=== PATIENT | female | born 1950 | race Caucasian/White ===

== ENCOUNTER 2016-12-20 08:49 | Observation (INO) | payer BC, MEDICARE ==
[2016-12-20] VITALS (11 sets, daily range): BP systolic 103–170; BP diastolic 57–78; PULSE 46–66; RESP 15–20; TEMP 97.4–98.2; O2SAT 95–100
[~2016-12-20] VITALS: Ht 157.5 cm; Wt 60.0 kg
[~2016-12-20 08:49] MED LIST: ATEN-100 PO; FIORTAB4 PO; MVI
[2016-12-20] MEDS ORDERED: MULTTAB67 PO (09:00)
[2016-12-20] MEDS ORDERED: ASPI81CH CHEW (09:00)
[2016-12-20] MEDS ORDERED: LETR2.5T PO (09:00)
[2016-12-20 09:32] LABS: AUTOMATED NEUTROPHIL # 3.7 TH/MM3 (1.8-7.7); BASOPHIL % 0.4 % (0.0-2.0); EOSINOPHIL # 0.1 TH/MM3 (0-0.4); EOSINOPHIL % 1.5 % (0.0-4.0); HEMATOCRIT 32.9 % (35.0-46.0); HEMO FLAGS DIFF FINAL; LYMPH % 24.6 % (9.0-44.0); LYMPHOCYTE # 1.4 TH/MM3 (1.0-4.8); MEAN CELL VOLUME 91.8 FL (80.0-100.0); MEAN CORPUSCULAR HEMOGLOBIN 31.2 PG (27.0-34.0); MONO % 5.6 % (0.0-8.0); NEUT % 67.9 % (16.0-70.0); PLATELET COUNT 196 TH/MM3 (150-450); RED BLOOD COUNT 3.58 MIL/MM3 (4.00-5.30); RED CELL DISTRIBUTION WIDTH 13.1 % (11.6-17.2); WHITE BLOOD COUNT 5.5 TH/MM3 (4.0-11.0)
[2016-12-20 09:41] LABS: APTT (PATIENT) 28.4 SEC (24.3-30.1); INTERNATIONAL NORMALIZED RATIO 1.1 RATIO; PROTHROMBIN TIME - PATIENT 12.4 SEC (9.8-11.6)
[2016-12-20] MEDS ORDERED: ASPIRIN 81 MG CHEW TAB CHEW STA (09:51)
[2016-12-20 09:53] LABS: ALKALINE PHOSPHATASE 77 U/L (45-117); ALT (GPT) 36 U/L (10-53); ANION GAP 7 MEQ/L (5-15); AST (GOT) 25 U/L (15-37); BICARBONATE 29.7 MEQ/L (21.0-32.0); BLOOD UREA NITROGEN 15 MG/DL (7-18); CHLORIDE 104 MEQ/L (98-107); GLOMERULAR FILTRATION RATE 89 ML/MIN (>89); MAGNESIUM 2.1 MG/DL (1.5-2.5); SODIUM (NA) 141 MEQ/L (136-145); TOTAL BILIRUBIN ADULT 0.4 MG/DL (0.2-1.0)
--- NOTE | 2016-12-20 09:54 | RADRPT ---
EXAM DATE/TIME: 12/20/2016 09:43 [facility] COMPARISON: No previous studies available for comparison. INDICATIONS : Chest pain this morning, mid chest MEDICAL HISTORY : None. SURGICAL HISTORY : None. ENCOUNTER: Initial ACUITY: 1 day PAIN SCORE: 5/10 LOCATION: Bilateral chest FINDINGS: Portable AP view of the chest demonstrates a normal-sized cardiac silhouette. No effusion, consolidat ion, or pneumothorax is visualized. The bones and soft tissues demonstrate no acute abnormality. CONCLUSION: No acute cardiopulmonary abnormality is identified. Adonay Ortega MD on December 20, 2016 at 9:51 Board Certified Radiologist. This report was verified electronically.
--- NOTE | 2016-12-20 09:58 | PD ---
HPI Chief Complaint: Chest Pain Time Seen by Provider: 09:02 Travel History International Travel<30 days: No Contact w/Intl Traveler<30days: No Traveled to known affect area: No History of Present Illness HPI This 66 year-old woman who presents to the emergency department complaining of headache and chest pain. She states she has headaches about every other day or so. She only takes Tylenol for them. She got her typical headache starting in the middle the night last night. She couldn't sleep because the headache and because her neighbors compressor was going on. She states this morning she had one episode of vomiting and then developed pressure-like chest discomfort across her chest rating up into her neck and right shoulder as well as left shoulder. She doesn't was a some numbness in her lips. Symptoms been steady symptoms started, but are abating some. She had nausea still. She also some shortness of breath. States that she has not had this pressure like chest discomfort before. She is on a oral medication to topical hormone receptor parrish for history of breast CA. She has blood pressures elevated at night, was on atenolol in the past but is not now. She's had stress tests in the past , most recently about 2 years ago or so. She has no history of heart disease. No other complaints. History Past Medical History Narrative Medical History of breast CA, on oral medication Hypertension Social History Alcohol Use: Yes (occ.) Tobacco Use: No Allergies-Medications (Allergen,Severity, Reaction): Coded Allergies: Motrin (Verified Allergy, Mild, 10/10/15) Tessalon Perles (Verified Allergy, Unknown, 10/10/15) SOB Reported Meds & Prescriptions Reported Meds & Active Scripts Active Reported Letrozole 2.5 Mg Tab 1 Tab PO DAILY Multiple Vitamin 1 Tab 1 Tab PO DAILY Aspirin 81 Mg Chew 81 Mg CHEW DAILY Review of Systems Except as stated in HPI: all other systems reviewed are Neg Physical Exam Narrative GENERAL: Well-appearing 66 year-old woman, little bit anxious appearing, no acute distress. SKIN: Focused skin assessment warm/dry. HEAD: Atraumatic. Normocephalic. EYES: Pupils equal and round. No scleral icterus. No injection or drainage. ENT: No nasal bleeding or discharge. Mucous membranes pink and moist. NECK: Trachea midline. No JVD. CARDIOVASCULAR: Regular rate and rhythm. No murmur appreciated. RESPIRATORY: No accessory muscle use. Clear to auscultation. Breath sounds equal bilaterally. GASTROINTESTINAL: Abdomen soft, non-tender, nondistended. Hepatic and splenic margins not palpable. MUSCULOSKELETAL: No obvious deformities. No clubbing. No cyanosis. No edema. NEUROLOGICAL: Awake and alert. No obvious cranial nerve deficits. Motor grossly within normal limits. Normal speech. PSYCHIATRIC: Appropriate mood and affect; insight and judgment normal. Data Data Last Documented VS Vital Signs Date Time Temp Pulse Resp B/P Pulse Ox O2 Delivery O2 Flow Rate FiO2 12/20/16 09:29 96 Room Air 12/20/16 09:01 53 15 143/71 12/20/16 08:51 97.7 Orders Electrocardiogram (12/20/16 ) Electrocardiogram (12/20/16 09:14) Complete Blood Count With Diff (12/20/16 09:14) Comprehensive Metabolic Panel (12/20/16 09:14) Magnesium (Mg) (12/20/16 09:14) Prothrombin Time / Inr (Pt) (12/20/16 09:14) Act Partial Throm Time (Ptt) (12/20/16 09:14) Troponin I (12/20/16 09:14) Lipase (12/20/16 09:14) Chest, Single Ap (12/20/16 09:14) Ecg Monitoring (12/20/16 09:14) Bilateral Bp Monitoring (12/20/16 09:14) Iv Access Insert/Monitor (12/20/16 09:14) Oximetry (12/20/16 09:14) Oxygen Administration (12/20/16 09:14) Sodium Chloride 0.9% Flush (Ns Flush) (12/20/16 09:15) Aspirin Chew (Aspirin Chew) (12/20/16 09:51) Prochlorperazine Inj (Compazine Inj) (12/20/16 10:00) Diphenhydramine Inj (Benadryl Inj) (12/20/16 10:00) Sodium Chlorid 0.9% 500 Ml Inj (Ns 500 M (12/20/16 10:00) Labs Laboratory Tests Test 12/20/16 09:20 White Blood Count 5.5 TH/MM3 Red Blood Count 3.58 MIL/MM3 Hemoglobin 11.2 GM/DL Hematocrit 32.9 % Mean Corpuscular Volume 91.8 FL Mean Corpuscular Hemoglobin 31.2 PG Mean Corpuscular Hemoglobin 34.0 % Concent Red Cell Distribution Width 13.1 % Platelet Count 196 TH/MM3 Mean Platelet Volume 9.0 FL Neutrophils (%) (Auto) 67.9 % Lymphocytes (%) (Auto) 24.6 % Monocytes (%) (Auto) 5.6 % Eosinophils (%) (Auto) 1.5 % Basophils (%) (Auto) 0.4 % Neutrophils # (Auto) 3.7 TH/MM3 Lymphocytes # (Auto) 1.4 TH/MM3 Monocytes # (Auto) 0.3 TH/MM3 Eosinophils # (Auto) 0.1 TH/MM3 Basophils # (Auto) 0.0 TH/MM3 CBC Comment DIFF FINAL Differential Comment Prothrombin Time 12.4 SEC Prothromb Time International 1.1 RATIO Ratio Activated Partial 28.4 SEC Thromboplast Time Sodium Level 141 MEQ/L Potassium Level 4.0 MEQ/L Chloride Level 104 MEQ/L Carbon Dioxide Level 29.7 MEQ/L Anion Gap 7 MEQ/L Blood Urea Nitrogen 15 MG/DL Creatinine 0.66 MG/DL Estimat Glomerular Filtration 89 ML/MIN Rate Random Glucose 100 MG/DL Calcium Level 8.7 MG/DL Magnesium Level 2.1 MG/DL Total Bilirubin 0.4 MG/DL Aspartate Amino Transf 25 U/L (AST/SGOT) Alanine Aminotransferase 36 U/L (ALT/SGPT) Alkaline Phosphatase 77 U/L Troponin I LESS THAN 0.02 NG/ML Total Protein 7.2 GM/DL Albumin 4.0 GM/DL Lipase 133 U/L [facility] Medical Decision Making Medical Screen Exam Complete: Yes Emergency Medical Condition: Yes Interpretation(s) My review of EKG: Sinus bradycardia rate of 49, normal axis, normal intervals, no acute ischemia. Differential Diagnosis ACS, anxiety, migraine, dissection, PE, other Narrative Course Medical decision making This 58-year-old woman presents emergent [place] of pressure-like chest discomfort in the setting of headache. She gets headaches about every other day or so. She had some vomiting. She does not take NSAIDs. Doesn't really sound like gastritis. She has had some reflux before. She looks overall well. She may have some element of anxiety. We'll check x-ray, labs, EKG, and likely admit the chest pain Center. We'll give her Compazine and Benadryl for her migraine. FINAL: Headache improved, chest pain improved. Patient will be admitted chest pain Center for further evaluation. Diagnosis Primary Impression: Chest pain Braulio Chirinos MD December 20, 2016 09:58
[2016-12-20] MEDS ORDERED: SODIUM CHLORID 0.9% 500 ML INJ 500 ML IV ONE (10:00)
[2016-12-20] MEDS ORDERED: diphenhydrAMINE HCL 50 MG/ML VIAL IV PUSH ONE (10:00)
[2016-12-20] MEDS ORDERED: PROCHLORPERAZINE INJ 10 MG/2 ML VIAL IV PUSH ONE (10:00)
--- NOTE | 2016-12-20 11:24 | EKG ---
Date Performed: 12/20/2016 Time Performed: 09:05:20 PTAGE: 66 years EKG: SINUS BRADYCARDIA WITH SINUS ARRHYTHMIA BORDERLINE ECG PREVIOUS TRACING : 10/10/2015 11.42 DOCTOR: Tre Lovelace Interpretating Date/Time 12/20/2016 11:24:07
[2016-12-20] MEDS ORDERED: cloNIDine HCL 0.1 MG TAB PO PRN (11:30)
[2016-12-20] MEDS ORDERED: TEMAZEPAM 15 MG CAP PO PRN (11:30)
[2016-12-20] MEDS ORDERED: ONDANSETRON HCL 4 MG/2 ML VIAL IV PRN (11:30)
[2016-12-20] MEDS ORDERED: SODIUM CHLORIDE 0.9% FLUSH 5 ML FLUSH IVF PRN (11:30)
[2016-12-20] MEDS ORDERED: ALPRAZolam 0.25 MG TAB PO PRN (11:30)
--- NOTE | 2016-12-20 11:39 | HHI.HP ---
[facility] Primary Care Physician Richelle Mata MD Chief Complaint Chest pain History of Present Illness This is a 66-year-old female that presents to ED via private vehicle stating that she drove herself here with a complaint of discomfort in her chest. She had a left-sided discomfort that she describes as crushing it began around 7:30 this morning while she was on the phone with a friend. The read on her left arm with also some numbness and tingling in her left arm and hand. She was nauseous with one episode of emesis. She was short of breath with also diaphoresis. She believes the nausea was more so related to a headache that she was having. She states she has chronic migraines. She has them every other day and sometimes even daily. This was her typical type of headache. She still having the chest discomfort. Was a 9 out of 10 initially currently discomfort is a 2 out of 10. She's had a cardiac evaluation the past. States she saw Dr. Ribeiro in the past per she had a stress test to 3 years ago that was okay. Cannot recall ever having have a cardiac catheterization. Denies recent illness. Denies fevers or chills. Denies any recent travel. History of breast cancer diagnosed 2012 and takes letrozole daily. She states that no mass was detected on the last imaging study. Review of Systems General: Patient denies fevers, chills recent, and recent travel HEENT: She has had a headache since 2:00 this morning but is feeling better after getting IV medication in the ED. Patient denies sore throat, difficulty swallowing. Cardiovascular: Has the chest discomfort as mentioned above. Denies sensation of heart beating rapidly or irregularly. No syncope. She was diaphoretic. Respiratory: She was initially short of breath. Denies inspirational chest discomfort. Denies coughing wheezing or hemoptysis. GI: She was nauseous earlier with an episode of emesis. Patient denies diarrhea , abdominal pain, and bloody stools. Musculoskeletal: Patient denies joint pain or edema. Denies calf pain or edema. Neurovascular: Complained of numbness and tingling sensation down her left arm. Patient weakness in extremities. Denies headache. Endocrine: Denies polyuria and polydipsia. Hematologic: Denies easy bruising. Skin: Denies rash or itching. Past Family Social History Allergies: Coded Allergies: Motrin (Verified Allergy, Mild, 10/10/15) Tessalon Perles (Verified Allergy, Unknown, 10/10/15) SOB Past Medical History Migraines. Breast cancer diagnosed 2012 but states last imaging study does not reveal any masses. Denies hypertension, hyperlipidemia, diabetes, and known CAD. Past Surgical History Biopsy of breast is benign. Reported Medications Reported Meds & Active Scripts Active Reported Letrozole 2.5 Mg Tab 1 Tab PO DAILY Multiple Vitamin 1 Tab 1 Tab PO DAILY Aspirin 81 Mg Chew 81 Mg CHEW DAILY Active Ordered Medications Current Medications Medications (Trade) Dose Ordered Sig/Emma Route Start Time Stop Time Status Last Admin (NS Flush) 2 ml UNSCH PRN IVF 12/20/16 09:15 Family History Her younger brother has had cardiac stents. She has a sister with CHF. Her mother at age 61 of congestive heart failure. Social History Patient is a lifetime nonsmoker. Denies illicit drugs. She has occasional call. She states that her daughter lives with her. Physical Exam Vital Signs Vital Signs Date Time Temp Pulse Resp B/P Pulse Ox O2 Delivery O2 Flow Rate FiO2 12/20/16 09:29 96 Room Air 12/20/16 09:18 97 Room Air 12/20/16 09:01 53 15 143/71 99 Room Air 12/20/16 08:56 17 Room Air 12/20/16 08:51 97.7 54 20 170/78 100 Room Air Physical Exam GENERAL: This is a well-nourished, well-developed patient, in no apparent distress. Patient speaks in clear complete sentences. Patient is pleasant. HEENT: Head is atraumatic and normocephalic. Neck is supple without lymphadenopathy and trachea is midline. No JVD or carotid bruits. CARDIOVASCULAR: Grade 2 systolic murmur right sternal border. This does not radiate into the neck. Regular rate and rhythm without gallops, or rubs. RESPIRATORY: Clear to auscultation. Breath sounds equal bilaterally. No wheezes , rales, or rhonchi. Chest wall is nontender. No use of accessory muscles. GASTROINTESTINAL: Abdomen is nontender, nondistended. Abdomen soft. No obvious pulsatile mass or bruit. No CVA tenderness. Strong femoral pulses bilaterally. Normal bowel sounds in all quadrants. MUSCULOSKELETAL: Patient is moving upper and lower extremities freely. No calf tenderness or edema, no Homans sign. Strong pulses in upper and lower extremities. NEUROLOGICAL: Patient is alert and oriented. Cranial nerves 2-12 are grossly intact. No focal deficits and speech is clear. SKIN: No rash and turgor is normal. Laboratory Laboratory Tests Test 12/20/16 09:20 White Blood Count 5.5 Red Blood Count 3.58 Hemoglobin 11.2 Hematocrit 32.9 Mean Corpuscular Volume 91.8 Mean Corpuscular Hemoglobin 31.2 Mean Corpuscular Hemoglobin 34.0 Concent Red Cell Distribution Width 13.1 Platelet Count 196 Mean Platelet Volume 9.0 Neutrophils (%) (Auto) 67.9 Lymphocytes (%) (Auto) 24.6 Monocytes (%) (Auto) 5.6 Eosinophils (%) (Auto) 1.5 Basophils (%) (Auto) 0.4 Neutrophils # (Auto) 3.7 Lymphocytes # (Auto) 1.4 Monocytes # (Auto) 0.3 Eosinophils # (Auto) 0.1 Basophils # (Auto) 0.0 CBC Comment DIFF FINAL Differential Comment Prothrombin Time 12.4 Prothromb Time International 1.1 Ratio Activated Partial 28.4 Thromboplast Time Sodium Level 141 Potassium Level 4.0 Chloride Level 104 Carbon Dioxide Level 29.7 Anion Gap 7 Blood Urea Nitrogen 15 Creatinine 0.66 Estimat Glomerular Filtration 89 Rate Random Glucose 100 Calcium Level 8.7 Magnesium Level 2.1 Total Bilirubin 0.4 Aspartate Amino Transf 25 (AST/SGOT) Alanine Aminotransferase 36 (ALT/SGPT) Alkaline Phosphatase 77 Troponin I LESS THAN 0.02 Total Protein 7.2 Albumin 4.0 Lipase 133 Result Diagram: 12/20/1691912/20/16919 Imaging Last 24 hours Impressions Chest X-Ray 12/20/16913 Signed Impressions: Service Date/Time: Tuesday, December 20, 2016 09:43 - CONCLUSION: No acute cardiopulmonary abnormality is identified. Adonay Ortega MD Course Initial EKG is sinus bradycardia without significant ST segment depressions or elevations. Assessment and Plan Assessment and Plan * Chest pain: Patient will continue to have serial cardiac enzymes and EKGs for ruling out purposes. She will be seen by Dr. Ty Butler of cardiology in the chest pain center and will need a Lexiscan if she rules out. She will had coffee this morning and will need the spend the night for stress testing in the morning. She'll be discharged home if her stress test were to be nonischemic. She would then follow-up with her primary care physician. Patient is stable at this time. She is agreeable to this plan. Elvin Salvador December 20, 2016 11:39
[2016-12-20] MEDS ORDERED: oxyCODONE/ACETAMINOPHEN 5 MG/325 MG TAB PO PRN (13:00)
[2016-12-20 13:21] LABS: CREATINE KINASE 73 U/L (26-192)
[2016-12-20] MEDS: PANTOPRAZOLE SOD 40 MG DELAYED RELEASE TAB PO SCH (15:14)
[2016-12-20] MEDS: ACETAMINOPHEN 500 MG CPLT PO PRN (15:15)
[2016-12-20 15:59] LABS: CREATINE KINASE 66 U/L (26-192)
[2016-12-20] MEDS: SODIUM CHLORIDE 0.9% FLUSH 5 ML FLUSH IVF SCH (19:55)
[2016-12-21 04:35] VITALS: BP 140/65; PULSE 59; RESP 18; TEMP 97.5; O2SAT 95
[2016-12-21] MEDS: ACETAMINOPHEN 500 MG CPLT PO PRN (05:26)
[2016-12-21 07:02] VITALS: O2SAT 96
[2016-12-21 07:04] VITALS: BP 117/68; PULSE 60; RESP 16; TEMP 97.8; O2SAT 98
[2016-12-21 07:39] VITALS: PULSE 50
--- NOTE | 2016-12-21 08:05 | EKG ---
Date Performed: 12/20/2016 Time Performed: 15:19:40 PTAGE: 66 years EKG: SINUS BRADYCARDIA BORDERLINE ECG Since PREVIOUS TRACING , no significant change noted PREVIOUS TRACIN12/20/2016 12.23 DOCTOR: Shima Wolff Interpretating Date/Time 12/21/2016 08:03:50
--- NOTE | 2016-12-21 08:06 | EKG ---
Date Performed: 12/20/2016 Time Performed: 12:23:06 PTAGE: 66 years EKG: SINUS BRADYCARDIA BORDERLINE ECG Since PREVIOUS TRACING , no significant change noted PREVIOUS TRACIN12/20/2016 09.05 DOCTOR: Shima Wolff Interpretating Date/Time 12/21/2016 08:04:12
[2016-12-21] MEDS ORDERED: NON-FORMULARY DRUG (Letrozole 1 TAB) PO SCH (09:00)
[2016-12-21] MEDS ORDERED: ASPIRIN 325 MG TAB PO SCH (09:00)
[2016-12-21] MEDS: SODIUM CHLORIDE 0.9% FLUSH 5 ML FLUSH IVF SCH (09:00)
[2016-12-21] MEDS ORDERED: MULTIVITAMIN TAB PO SCH (09:00)
[2016-12-21] MEDS ORDERED: LETROZOLE 2.5 MG PO SCH (09:00)
[2016-12-21] MEDS ORDERED: REGADENOSON INJ 0.4 MG/5 ML SYR ONE (09:43)
[2016-12-21] MEDS ORDERED: AMINOPHYLLINE INJ 250 MG/10 ML VIAL ONE (09:44)
--- NOTE | 2016-12-21 10:38 | RADRPT ---
EXAM DATE/TIME: 12/21/2016 08:42 [facility] COMPARISON: No previous studies available for comparison. INDICATIONS : Headache with voting leading to retrosternal chest pain radiating to the neck and bilateral shoulder s with dyspnea. Angina. DOSE: 26.5 mCi Tc99m Myoview at stress. 8.8 mCi Tc99m Myoview at rest. 0.4 mg Lexiscan STRESS SYMPTOMS: Dyspnea, headache, and stomach pain. MEDICATIONS: 1.) 100 mg Aminophylline IV EJECTION FRACTION: 65% MEDICAL HISTORY : Hypertension. Carcinoma, breast. SURGICAL HISTORY : Appendectomy. Hysterectomy. Tubal ligation. ENCOUNTER: Initial ACUITY: 1 day PAIN SCALE: 6/10 LOCATION: Retrosternal chest TECHNIQUE: The patient underwent pharmacologic stress with infusion of prescribed dose. Continuous ECG tracing was monitored during stress. Gated SPECT imaging was performed after stress and conventional SPECT i maging was performed at rest. The examination was performed on a SPECT/CT scanner, both attenuation and non-corrected datasets were reviewed. FINDINGS: DISTRIBUTION: The maximum perfused segment at stress is in the anterolateral wall. PERFUSION STUDY: The pattern of perfusion at stress shows fixed diminished perfusion to the low inferolateral and ante roseptal dang extending into the apex. This is fixed on the rest images as well. No significant reve rsibility to suggest ischemia. GATED STUDY: There is intact wall motion and thickening without hypokinetic or dyskinetic segments. CONCLUSION: 1. 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 2. No scintigraphic findings of ischemia. 3. Excellent wall motion throughout with estimated ejection fraction of 65%. RISK CATEGORY: Low (<1% Annual Mortality Rate) Brad Berkowitz MD on December 21, 2016 at 10:30 Board Certified Radiologist. This report was verified electronically.
[2016-12-21] MEDS: SODIUM CHLORIDE 0.9% FLUSH 10 ML FLUSH IVF PRN ×2 (10:49→10:50)
[2016-12-21] MEDS: PANTOPRAZOLE SOD 40 MG DELAYED RELEASE TAB PO SCH (10:49)
[2016-12-21 11:03] VITALS: BP 138/66; PULSE 71; RESP 16; TEMP 98; O2SAT 97
--- NOTE | 2016-12-21 11:04 | HHI.DCPOC ---
Discharge Care Plan Diagnosis: (1) Atypical chest pain Goals to Promote Your Health * To prevent worsening of your condition and complications * To maintain your health at the optimal level Directions to Meet Your Goals Take your medications as prescribed Follow your dietary instruction Follow activity as directed Keep your appointments as scheduled Take your immunizations and boosters as scheduled If your symptoms worsen call your PCP, if no PCP go to Urgent Care Center or Emergency Room Smoking is Dangerous to Your Health. Avoid second hand smoke Call the 24-hour hour crisis hotline for domestic abuse at Lyndsey Larose December 21, 2016 11:04
[2016-12-21 11:50] VITALS: RESP 15
--- NOTE | 2016-12-21 15:15 | TR ---
Date Performed: 12/21/2016 Time Performed: 09:20:20 DOCTOR: Shima Wolff DRUG LIST: CLINICAL HISTORY: REASON FOR TEST: Angina REASON FOR ENDING: OBSERVATION: CONCLUSION: Lexiscan stress test was performed under standard four minute protocol. Radionucl[place] e was injected one minute prior to ending the test. No electrocardiographic abormalities were present to suggest ischemia. Nuclear imaging and interpretation are pending. COMMENTS:
== END 2016-12-21 12:49 | disposition home or self-care (01) ==
LOC: NEPC 08:49 → NEDA 11:11 → NEPFCDU 12:14
PROVIDERS: ADMIT Internal Medicine Cardiovascular Disease; ATTEND Internal Medicine Cardiovascular Disease
DX: R07.89 Other chest pain (principal); G43.909 Migraine, unspecified, not intractable, without status migrainosus; I20.9 Angina pectoris, unspecified; I10 Essential (primary) hypertension; I49.8 Other specified cardiac arrhythmias; R00.1 Bradycardia, unspecified; R06.02 Shortness of breath; R20.0 Anesthesia of skin; R53.1 Weakness; Z85.3 Personal history of malignant neoplasm of breast; Z82.49 Family history of ischemic heart disease and other diseases of the circulatory system
CPT/HCPCS: 71010; 78452; 80053; 82550; 83690; 83735; 84484; 85025; 85610; 85730; 93005; 93017; 96361; 96374; 96375; 99285; A9502; G0378; J0280; J0780; J1200; J2785; J7040

== ENCOUNTER 2016-12-23 03:45 | Emergency (ER) | payer MEDICARE ==
[~2016-12-23] VITALS: Ht 157.5 cm; Wt 61.0 kg
[~2016-12-23 03:45] MED LIST changes: +ASPI81CH CHEW; -ATEN-100 PO; -FIORTAB4 PO; +LETR2.5T PO; +MULTTAB67 PO; -MVI
[2016-12-23 03:52] VITALS: BP 187/84; PULSE 55; RESP 18; TEMP 98.5; O2SAT 100
[2016-12-23] MEDS ORDERED: ONDANSETRON HCL 4 MG/2 ML VIAL IV PUSH ONE (04:30)
[2016-12-23] MEDS ORDERED: MORPHINE SULFATE 4 MG/ML INJ IV PUSH ONE (04:30)
--- NOTE | 2016-12-23 04:32 | PD ---
HPI Chief Complaint: Abdominal Pain Time Seen by Provider: 04:28 Travel History International Travel<30 days: No Contact w/Intl Traveler<30days: No Traveled to known affect area: No History of Present Illness HPI 66-year-old female presents to the emergency department by private vehicle for complaint of lower bandlike abdominal pain radiating into her back. Patient denies lower extremity numbness tingling or weakness or bladder or bowel dysfunction or saddle anesthesia. Patient states she has history of irritable bowel syndrome for which she takes liness and prior breast cancer but has no other medical issues. Patient recently was hospitalized for bowel obstruction and underwent upper and lower endoscopy and no foci was identified. Patient also recently hospitalized with chest pain and had a normal stress test. Patient states her back pain increases with range of motion of her hips but denies any hip knee ankle or leg pain or swelling. No complaint of chest pain pleuritic chest pain shortness of breath referred neck jaw upper back mid scapular or upper abdominal pain. PFSH Past Medical History Narrative Medical Anxiety breast cancer chemotherapy hypertension irritable bowel syndrome bowel obstruction endoscopy colonoscopy hypertension migraines tubal ligation Asthma: No Blood Disorders: No Anxiety: Yes Depression: No Heart Rhythm Problems: No Cancer: Yes (BREAST BENIGN ) Cardiovascular Problems: Yes High Cholesterol: No Chemotherapy: Yes (PILL, BREAST CA) Chest Pain: No Congestive Heart Failure: No COPD: No Diabetes: No Diminished Hearing: No Endocrine: No Gastrointestinal Disorders: Yes (Irritable Bowel Syndrome) Genitourinary: No Hypertension: Yes Immune Disorder: No Musculoskeletal: No Neurologic: No Psychiatric: No Reproductive: No Respiratory: No Migraines: Yes Radiation Therapy: No Sleep Apnea: No Thyroid Disease: No Tetanus Vaccination: < 5 Years Influenza Vaccination: Yes Tubal Ligation: Yes Past Surgical History Appendectomy: Yes Body Medical Devices: chip on right side breast Eye Surgery: Yes (CATARACT) Gynecologic Surgery: Yes (HYSTERECTOMY) Hysterectomy: Yes Other Surgery: Yes (hystectomy, appendectomy, tubal ligation) Social History Alcohol Use: Yes (occ.) Tobacco Use: No Substance Use: No Allergies-Medications (Allergen,Severity, Reaction): Coded Allergies: Motrin (Verified Allergy, Mild, 12/23/16) Tessalon Perles (Verified Allergy, Unknown, 12/23/16) SOB Reported Meds & Prescriptions Reported Meds & Active Scripts Active Reported Letrozole 2.5 Mg Tab 1 Tab PO DAILY Multiple Vitamin 1 Tab 1 Tab PO DAILY Aspirin 81 Mg Chew 81 Mg CHEW DAILY Review of Systems Except as stated in HPI: all other systems reviewed are Neg General / Constitutional: No: Fever, Chills HENT: No: Congestion Cardiovascular: No: Chest Pain or Discomfort Respiratory: No: Shortness of Breath Gastrointestinal: Positive: Nausea, Vomiting (x1), Abdominal Pain Genitourinary: Positive: Flank Pain, No: Dysuria Musculoskeletal: Positive: Myalgias, Arthralgias, Pain (low back pain) Skin: No Rash Neurologic: No: Weakness, Paresthesia, Incontinence Psychiatric: Positive: Anxiety Hematologic/Lymphatic: No: Lymph Node Enlargement Physical Exam Narrative GENERAL: Well-developed well-nourished anxious appearing female in no respiratory distress SKIN: Warm and dry. HEAD: Normocephalic. EYES: No scleral icterus. No injection or drainage. NECK: Supple, trachea midline. No JVD or lymphadenopathy. CARDIOVASCULAR: Regular rate and rhythm without murmurs, gallops, or rubs. RESPIRATORY: Breath sounds equal bilaterally. No accessory muscle use. GASTROINTESTINAL: Abdomen soft, bilateral lower quadrant tenderness without guarding or rebound no palpable pulsatile mass, nondistended. MUSCULOSKELETAL: No cyanosis, or edema. BACK: Nontender without obvious deformity. Bilateral CVA tenderness. Increased pain with straight leg raising; distally extremities are neurovascular tendon intact with 2+ dorsalis pedis pulses. DTRs 2+ and equal bilaterally no clonus. Data Data Last Documented VS Vital Signs Date Time Temp Pulse Resp B/P Pulse Ox O2 Delivery O2 Flow Rate FiO2 12/23/16 04:46 55 17 142/67 100 Room Air 12/23/16 03:52 98.5 Orders Complete Blood Count With Diff (12/23/16 04:28) Comprehensive Metabolic Panel (12/23/16 04:28) Lipase (12/23/16 04:28) Urinalysis - C+S If Indicated (12/23/16 04:28) Ct Abd/Pel W Iv Contrast(Rout) (12/23/16 04:28) Iv Access Insert/Monitor (12/23/16 04:28) Ecg Monitoring (12/23/16 04:28) Oximetry (12/23/16 04:28) Ondansetron Inj (Zofran Inj) (12/23/16 04:30) Morphine Inj (Morphine Inj) (12/23/16 04:30) Iohexol 350 Inj (Omnipaque 350 Inj) (12/23/16 05:45) Labs Laboratory Tests Test 12/23/16 12/23/16 04:40 05:50 White Blood Count 5.8 TH/MM3 Red Blood Count 3.51 MIL/MM3 Hemoglobin 11.0 GM/DL Hematocrit 31.8 % Mean Corpuscular Volume 90.5 FL Mean Corpuscular Hemoglobin 31.2 PG Mean Corpuscular Hemoglobin 34.5 % Concent Red Cell Distribution Width 12.9 % Platelet Count 207 TH/MM3 Mean Platelet Volume 8.9 FL Neutrophils (%) (Auto) 55.4 % Lymphocytes (%) (Auto) 34.1 % Monocytes (%) (Auto) 7.4 % Eosinophils (%) (Auto) 2.5 % Basophils (%) (Auto) 0.6 % Neutrophils # (Auto) 3.2 TH/MM3 Lymphocytes # (Auto) 2.0 TH/MM3 Monocytes # (Auto) 0.4 TH/MM3 Eosinophils # (Auto) 0.1 TH/MM3 Basophils # (Auto) 0.0 TH/MM3 CBC Comment DIFF FINAL Differential Comment Sodium Level 140 MEQ/L Potassium Level 3.8 MEQ/L Chloride Level 104 MEQ/L Carbon Dioxide Level 29.1 MEQ/L Anion Gap 7 MEQ/L Blood Urea Nitrogen 12 MG/DL Creatinine 0.68 MG/DL Estimat Glomerular Filtration 86 ML/MIN Rate Random Glucose 96 MG/DL Calcium Level 8.6 MG/DL Total Bilirubin 0.4 MG/DL Aspartate Amino Transf 20 U/L (AST/SGOT) Alanine Aminotransferase 28 U/L (ALT/SGPT) Alkaline Phosphatase 69 U/L Total Protein 6.9 GM/DL Albumin 3.9 GM/DL Lipase 118 U/L Urine Color LIGHT-YELLOW Urine Turbidity CLEAR Urine pH 7.0 Urine Specific [place] 1.009 Urine Protein NEG mg/dL Urine Glucose (UA) NEG mg/dL Urine Ketones NEG mg/dL Urine Occult Blood NEG Urine Nitrite NEG Urine Bilirubin NEG Urine Urobilinogen LESS THAN 2.0 MG/DL Urine Leukocyte Esterase NEG Urine RBC LESS THAN 1 /hpf Microscopic Urinalysis Comment CULT NOT INDICATED MDM Medical Decision Making Medical Screen Exam Complete: Yes Emergency Medical Condition: Yes Medical Record Reviewed: Yes Interpretation(s) UA: wnl Last Impressions Abdomen/Pelvis CT 12/23/16 0428 Signed Impressions: Service Date/Time: December 05:41 - CONCLUSION: No acute CT findings in the abdomen or pelvis. Adonay Hansen MD CBC & BMP Diagram 12/23/16 04:40 Vital Signs Date Time Temp Pulse Resp B/P Pulse Ox O2 Delivery O2 Flow Rate FiO2 12/23/16 04:46 55 17 142/67 100 Room Air 12/23/16 03:56 16 12/23/16 03:52 98.5 55 18 187/84 100 Room Air Differential Diagnosis Abdominal pain, bowel obstruction, diverticulitis, colitis, abdominal aortic aneurysm, renal colic, UTI, sciatica, sacroiliitis, metastatic disease; no findings for cauda equina syndrome Narrative Course Patient placed on court monitor IV access obtained specimens collected and sent for resulting patient administered Zofran 4 mg IV and morphine sulfate [address] abdomen and pelvis with IV contrast ordered CBC with automated differential metabolic panel values are normal range Patient sent for CT abdomen and pelvis CT abdomen and pelvis reveals no acute intra-abdominal or pelvic abnormality/ pathology Patient notes clinical improvement after pain medication as some residual pain to the left flank; urinalysis pending Urinary resulted and found to be in normal range Patient is stable for outpatient management will be given prescription for tramadol and Medrol Dosepak and encouraged to follow-up with her primary care provider Diagnosis Primary Impression: Lumbar back pain Qualified Code: M54.42 - Acute left-sided low back pain with left-sided sciatica Additional Impression: IBS (irritable bowel syndrome) Qualified Code: K58.9 - Irritable bowel syndrome, unspecified type Referrals: Primary Care Physician call for appointment Patient Instructions: General Instructions Med/Other Pt SpecificInfo: Prescription(s) given Scripts Methylprednisolone Dosepak (Medrol Dosepak)4 Mg Dspk4 Mg PO DIRECTED #1 DSPK Ref 0 Per Pharmacist direction Prov:Flores Urias MD 12/23/16 Tramadol 50 Mg Tab50 Mg PO Q6H PRN (PAIN) #12 TAB Ref 0 Prov:Flores Urias MD 12/23/16 Disposition: DISCHARGE HOME Condition: Stable Flores Urias MD Dec 23, 2016 04:32
[2016-12-23 04:46] VITALS: BP 142/67; PULSE 55; RESP 17; O2SAT 100
[2016-12-23 05:03] LABS: AUTOMATED NEUTROPHIL # 3.2 TH/MM3 (1.8-7.7); BASOPHIL % 0.6 % (0.0-2.0); EOSINOPHIL # 0.1 TH/MM3 (0-0.4); EOSINOPHIL % 2.5 % (0.0-4.0); HEMATOCRIT 31.8 % (35.0-46.0); HEMO FLAGS DIFF FINAL; LYMPH % 34.1 % (9.0-44.0); MEAN CELL VOLUME 90.5 FL (80.0-100.0); MEAN CORPUSCULAR HEMOGLOBIN 31.2 PG (27.0-34.0); MEAN CORPUSCULAR HGB CONC 34.5 % (32.0-36.0); MONO % 7.4 % (0.0-8.0); NEUT % 55.4 % (16.0-70.0); PLATELET COUNT 207 TH/MM3 (150-450); RED BLOOD COUNT 3.51 MIL/MM3 (4.00-5.30); RED CELL DISTRIBUTION WIDTH 12.9 % (11.6-17.2); WHITE BLOOD COUNT 5.8 TH/MM3 (4.0-11.0)
[2016-12-23 05:26] LABS: ANION GAP 7 MEQ/L (5-15); AST (GOT) 20 U/L (15-37); BICARBONATE 29.1 MEQ/L (21.0-32.0); BLOOD UREA NITROGEN 12 MG/DL (7-18); CHLORIDE 104 MEQ/L (98-107); GLOMERULAR FILTRATION RATE 86 ML/MIN (>89); POTASSIUM 3.8 MEQ/L (3.5-5.1); SODIUM (NA) 140 MEQ/L (136-145)
[2016-12-23 05:27] LABS: ALT (GPT) 28 U/L (10-53)
[2016-12-23 05:29] LABS: ALKALINE PHOSPHATASE 69 U/L (45-117); TOTAL BILIRUBIN ADULT 0.4 MG/DL (0.2-1.0)
[2016-12-23] MEDS ORDERED: IOHEXOL 350 MG/ML 10 ML VIAL (for RAD DIAG) IV ONE (05:45)
--- NOTE | 2016-12-23 05:55 | RADRPT ---
EXAM DATE/TIME: 12/23/2016 05:41 [facility] COMPARISON: No previous studies available for comparison. INDICATIONS : Abdomen and back pain. IV CONTRAST: 80 cc Omnipaque 350 (iohexol) IV ORAL CONTRAST: No oral contrast ingested. RADIATION DOSE: 6.00 CTDIvol (mGy) MEDICAL HISTORY : Cardiovascular disease. Hypertension. Carcinoma, breast. SURGICAL HISTORY : Appendectomy. Hysterectomy. ENCOUNTER: Initial ACUITY: 1 day PAIN SCALE: 10/10 LOCATION: abdomen TECHNIQUE: Volumetric scanning of the abdomen and pelvis was performed. Using automated exposure control and ad justment of the mA and/or kV according to patient size, radiation dose was kept as low as reasonably achievable to obtain optimal diagnostic quality images. FINDINGS: LOWER LUNGS: The visualized lower lungs are clear. LIVER: Homogeneous density without lesion. There is no dilation of the biliary tree. No calcified gallston es. SPLEEN: Normal size without lesion. PANCREAS: Within normal limits. KIDNEYS: Bilateral cysts, largest a 1.8 cm cyst arising in the lateral apex of the left kidney. No evidence of hydronephrosis or stone. ADRENAL GLANDS: Within normal limits. VASCULAR: There is no aortic aneurysm. BOWEL/MESENTERY: The stomach, small bowel, and colon demonstrate no acute abnormality. There is no free intraperitone al air or fluid. ABDOMINAL WALL: Within normal limits. RETROPERITONEUM: There is no lymphadenopathy. BLADDER: No wall thickening or mass. REPRODUCTIVE: Uterus is surgically absent. No evidence of pelvic mass or free fluid. INGUINAL: There is no lymphadenopathy or hernia. MUSCULOSKELETAL: Within normal limits for patient age. CONCLUSION: No acute CT findings in the abdomen or pelvis. Adonay Hansen MD on December 23, 2016 at 5:49 Board Certified Radiologist. This report was verified electronically.
[2016-12-23 06:06] LABS: BLOOD, URINE NEG (NEG); COMMENT (UR) CULT NOT INDICATED; CULTURE IF INDICATED CULT NOT INDICATED; GLUCOSE,URINE NEG (NEG); KETONE, URINE NEG (NEG); NITRITE,URINE NEG (NEG); URINE COLOR LIGHT-YELLOW (YELLW/STRAW)
[2016-12-23] MEDS ORDERED: TRAM50TA PO (06:17)
[2016-12-23] MEDS ORDERED: MEDR4PAK PO (06:17)
[2016-12-23] MEDS ORDERED: predniSONE 20 MG TAB PO ONE (06:30)
[2016-12-23 06:56] VITALS: BP 138/61
== END 2016-12-23 07:15 | disposition home or self-care (01) ==
LOC: NEPC 03:45
DX: M54.5 Low back pain (principal); K58.9 Irritable bowel syndrome, unspecified; I10 Essential (primary) hypertension; F41.9 Anxiety disorder, unspecified
CPT/HCPCS: 74177; 80053; 81001; 83690; 85025; 96374; 96375; 99285; J2270; J2405; J7512; Q9967

== ENCOUNTER 2017-04-29 06:32 | Emergency (ER) | payer MEDICARE ==
[~2017-04-29] VITALS: Ht 154.9 cm; Wt 63.5 kg
[~2017-04-29 06:32] MED LIST changes: +MEDR4PAK PO; +TRAM50TA PO
[2017-04-29 06:34] VITALS: BP 179/84; PULSE 54; RESP 16; TEMP 98; O2SAT 100
[2017-04-29 06:58] VITALS: RESP 17; O2SAT 100
[2017-04-29 07:12] LABS: AUTOMATED NEUTROPHIL # 2.6 TH/MM3 (1.8-7.7); BASOPHIL % 0.8 % (0.0-2.0); EOSINOPHIL # 0.2 TH/MM3 (0-0.4); EOSINOPHIL % 3.5 % (0.0-4.0); HEMATOCRIT 37.1 % (35.0-46.0); HEMO FLAGS DIFF FINAL; LYMPH % 43.1 % (9.0-44.0); LYMPHOCYTE # 2.4 TH/MM3 (1.0-4.8); MEAN CELL VOLUME 91.5 FL (80.0-100.0); MEAN CORPUSCULAR HEMOGLOBIN 31.4 PG (27.0-34.0); MEAN CORPUSCULAR HGB CONC 34.3 % (32.0-36.0); NEUT % 46.6 % (16.0-70.0); PLATELET COUNT 234 TH/MM3 (150-450); RED BLOOD COUNT 4.05 MIL/MM3 (4.00-5.30); RED CELL DISTRIBUTION WIDTH 12.9 % (11.6-17.2); WHITE BLOOD COUNT 5.5 TH/MM3 (4.0-11.0)
[2017-04-29 07:31] LABS: APTT (PATIENT) 24.1 SEC (24.3-30.1); PROTHROMBIN TIME - PATIENT 10.8 SEC (9.8-11.6)
[2017-04-29 07:32] LABS: ANION GAP 5 MEQ/L (5-15); BICARBONATE 29.8 MEQ/L (21.0-32.0); BLOOD UREA NITROGEN 13 MG/DL (7-18); CHLORIDE 104 MEQ/L (98-107); GLOMERULAR FILTRATION RATE 84 ML/MIN (>89); POTASSIUM 4.1 MEQ/L (3.5-5.1); SODIUM (NA) 139 MEQ/L (136-145)
[2017-04-29 07:42] LABS: CREATINE KINASE 65 U/L (26-192)
[2017-04-29] MEDS ORDERED: NITROGLYCERIN 2% OINT 1 GM PACKET TOPICAL ONE (07:45)
[2017-04-29] MEDS ORDERED: MORPHINE SULFATE 4 MG/ML INJ IV PUSH ONE ×2 (07:45→11:00)
--- NOTE | 2017-04-29 08:06 | RADRPT ---
EXAM DATE/TIME: 04/29/2017 07:38 [facility] COMPARISON: CHEST SINGLE AP, December 20, 2016, 9:43. INDICATIONS : Chest pain MEDICAL HISTORY : Cardiovascular disease. Hypertension. Carcinoma, breast. SURGICAL HISTORY : Appendectomy. Hysterectomy. ENCOUNTER: Initial ACUITY: 1 day PAIN SCORE: 5/10 LOCATION: Bilateral chest FINDINGS: The heart size is normal. The lungs are free of focal consolidation. There is some increased density seen in the superior medial right chest. This may be related to the first costochondral junction. It is asymmetric. An underlying pulmonary nodule cannot be excluded. CONCLUSION: 1. No acute abnormality seen. 2. Questionable focal density in the right upper chest related to either the first costochondral junc tion or an underlying pulmonary nodule. A noncontrast CT examination of the chest could be performed for further evaluation. Adonay Medina MD on April 29, 2017 at 8:03 Board Certified Radiologist. This report was verified electronically.
--- NOTE | 2017-04-29 08:19 | PD ---
HPI Chief Complaint: Chest Pain Time Seen by Provider: 07:35 Travel History International Travel<30 days: No Contact w/Intl Traveler<30days: No Traveled to known affect area: No History of Present Illness HPI This is a 67-year-old female who states she's had previous coronary artery disease and reports previous silent heart attack, presents today with points of right sided chest pain. Patient states she was in the shower shaving her legs when she bent over to shave her right leg, she started experiencing severe pain in her right chest radiating to her right back. There is associated shortness of breath. There is no nausea. There is no diaphoresis. She's not had pain like this before. She states it's worse with breathing. There is no reproducible pain. There are no other complaints time my examination. PFSH Past Medical History Asthma: No Blood Disorders: No Anxiety: Yes Depression: No Heart Rhythm Problems: No Cancer: Yes (BREAST BENIGN ) Cardiovascular Problems: Yes (HTN) High Cholesterol: No Chemotherapy: Yes Chest Pain: No Congestive Heart Failure: No COPD: No Diabetes: No Diminished Hearing: No Endocrine: No Gastrointestinal Disorders: Yes (Irritable Bowel Syndrome) Genitourinary: No Hypertension: Yes Immune Disorder: No Musculoskeletal: No Neurologic: No Psychiatric: No Reproductive: No Respiratory: No Migraines: Yes Radiation Therapy: No Sleep Apnea: No Thyroid Disease: No Tetanus Vaccination: < 5 Years Influenza Vaccination: Yes ?: Not Tubal Ligation: Yes Past Surgical History Appendectomy: Yes Body Medical Devices: chip on right side breast Eye Surgery: Yes (CATARACT) Gynecologic Surgery: Yes (HYSTERECTOMY) Hysterectomy: Yes Other Surgery: Yes (hystectomy, appendectomy, tubal ligation) Social History Alcohol Use: Yes (occ.) Tobacco Use: No Substance Use: No Allergies-Medications (Allergen,Severity, Reaction): Coded Allergies: ibuprofen (Unverified Allergy, Mild, 04/29/17) benzonatate (Unverified Allergy, Unknown, 04/29/17) SOB Reported Meds & Prescriptions Reported Meds & Active Scripts Active Flexeril (Cyclobenzaprine HCl) 5 Mg Tab 5 Mg PO TID Lortab (Hydrocodone-Acetaminophen) 5-325 Mg Tab 1 Tab PO Q6H PRN Reported B12 (Cyanocobalamin) 1,000 Mcg Tab 5,000 Mcg BID Letrozole 2.5 Mg Tab 1 Tab PO DAILY Multiple Vitamin 1 Tab 1 Tab PO DAILY Aspirin 81 Mg Chew 81 Mg CHEW DAILY Review of Systems Except as stated in HPI: all other systems reviewed are Neg General / Constitutional: No: Fever, Chills HENT: No: Headaches, Neck Pain Cardiovascular: Positive: Chest Pain or Discomfort (right sided with radiation to the back), No: Palpitations, Irregular Rhythm Respiratory: No: Cough, Shortness of Breath Gastrointestinal: No: Nausea, Vomiting, Abdominal Pain Genitourinary: No: Frequency, Dysuria Musculoskeletal: Positive: Pain (right back.) Skin: No Rash, No Itching Neurologic: No: Weakness, Headache Physical Exam Narrative GENERAL: Well-developed well-nourished female in no acute respiratory distress. SKIN: Focused skin assessment warm/dry. HEAD: Atraumatic. Normocephalic. EYES: No scleral icterus. No injection or drainage. ENT: No nasal bleeding or discharge. Mucous membranes pink and moist. NECK: Trachea midline. No JVD. CARDIOVASCULAR: Regular rate and rhythm. No murmur appreciated. RESPIRATORY: No accessory muscle use. Clear to auscultation. Breath sounds equal bilaterally. GASTROINTESTINAL: Abdomen soft, non-tender, nondistended. MUSCULOSKELETAL: No obvious deformities. No clubbing. No cyanosis. No edema. BACK: No CVA tenderness. No rash. No point tenderness on palpation of the spine. No pain on palpation of her right lateral back. NEUROLOGICAL: Awake and alert. No obvious cranial nerve deficits. Motor grossly within normal limits. Normal speech. PSYCHIATRIC: Appropriate mood and affect; insight and judgment normal. Data Data Last Documented VS Vital Signs Date Time Temp Pulse Resp B/P (MAP) Pulse Ox O2 Delivery O2 Flow Rate FiO2 04/29/17 11:00 56 20 158/67 (97) 100 Room Air 04/29/17 06:58 2.00 04/29/17 06:34 98.0 Orders Orders Electrocardiogram (04/29/17 ) Complete Blood Count With Diff (04/29/17 06:52) Basic Metabolic Panel (Bmp) (04/29/17 06:52) Ckmb (Isoenzyme) Profile (04/29/17 06:52) Troponin I (04/29/17 06:52) Chest, Single Ap (04/29/17 06:52) Iv Access Insert/Monitor (04/29/17 06:52) Ecg Monitoring (04/29/17 06:52) Oxygen Administration (04/29/17 06:52) Oximetry (04/29/17 06:52) Act Partial Throm Time (Ptt) (04/29/17 06:52) Prothrombin Time / Inr (Pt) (04/29/17 06:52) D-Dimer (04/29/17 07:35) Aspirin Chew (Aspirin Chew) (04/29/17 09:00) Nitroglycerin 2% Oint (Nitroglycerin 2% (04/29/17 07:45) Morphine Inj (Morphine Inj) (04/29/17 07:45) Ct Pulmonary Angiogram (04/29/17 10:04) Iohexol 350 Inj (Omnipaque 350 Inj) (04/29/17 10:41) Morphine Inj (Morphine Inj) (04/29/17 11:00) Electrocardiogram (04/29/17 11:17) Ckmb (Isoenzyme) Profile (04/29/17 11:17) Troponin I (04/29/17 11:17) Labs Laboratory Tests Test 04/29/17 07:00 04/29/17 12:40 White Blood Count 5.5 TH/MM3 Red Blood Count 4.05 MIL/MM3 Hemoglobin 12.7 GM/DL Hematocrit 37.1 % Mean Corpuscular Volume 91.5 FL Mean Corpuscular Hemoglobin 31.4 PG Mean Corpuscular Hemoglobin Concent 34.3 % Red Cell Distribution Width 12.9 % Platelet Count 234 TH/MM3 Mean Platelet Volume 8.5 FL Neutrophils (%) (Auto) 46.6 % Lymphocytes (%) (Auto) 43.1 % Monocytes (%) (Auto) 6.0 % Eosinophils (%) (Auto) 3.5 % Basophils (%) (Auto) 0.8 % Neutrophils # (Auto) 2.6 TH/MM3 Lymphocytes # (Auto) 2.4 TH/MM3 Monocytes # (Auto) 0.3 TH/MM3 Eosinophils # (Auto) 0.2 TH/MM3 Basophils # (Auto) 0.0 TH/MM3 CBC Comment DIFF FINAL Differential Comment Prothrombin Time 10.8 SEC Prothromb Time International Ratio 1.0 RATIO Activated Partial Thromboplast Time 24.1 SEC D-Dimer Quantitative (PE/DVT) 0.68 MG/L FEU Blood Urea Nitrogen 13 MG/DL Creatinine 0.69 MG/DL Random Glucose 91 MG/DL Calcium Level 9.0 MG/DL Sodium Level 139 MEQ/L Potassium Level 4.1 MEQ/L Chloride Level 104 MEQ/L Carbon Dioxide Level 29.8 MEQ/L Anion Gap 5 MEQ/L Estimat Glomerular Filtration Rate 84 ML/MIN Total Creatine Kinase 65 U/L 61 U/L Troponin I LESS THAN 0.02 NG/ML LESS THAN 0.02 NG/ML MDM Medical Decision Making Medical Screen Exam Complete: Yes Emergency Medical Condition: Yes Differential Diagnosis ACS versus musculoskeletal pain versus pulmonary embolism Narrative Course 67-year-old female history of reported coronary disease, presents today with points of right sided chest pain made worse with movement and deep breath. Patient does not have a pulmonary embolism by CTA. The patient's cardiac enzymes 2 are negative as well as her EKGs for acute process. Patient had a recent stress test on December 21. This was negative. It was reviewed by Dr. Ahn and again was completely normal. Given this, she unlikely has coronary artery disease and this is unlikely cardiac given her location and recent stress test. I believe this is likely muscle skeletal etiology. She's been given 2 doses of morphine which is greatly improved the discomfort. It is worse with movement. I discussed the top process with the patient and she is amenable to the plan. Diagnosis Primary Impression: Atypical chest pain Additional Instructions: Avoid heavy lifting. Do not take medicine while driving or drinking alcohol. Return if feeling worse, or any other reason. Med/Other Pt SpecificInfo: Prescription(s) given Scripts Cyclobenzaprine (Flexeril) 5 Mg Tab 5 MG PO TID for Muscle Spasm, #15 TAB 0 Refills Prov: Rene De Leon MD 04/29/17 Hydrocodone-Acetaminophen (Lortab) 5-325 Mg Tab 1 TAB PO Q6H Y for PAIN, #20 TAB 0 Refills Prov: Rene De Leon MD 04/29/17 Disposition: 01 DISCHARGE HOME Condition: Stable Rene De Leon MD Apr 29, 2017 08:19
[2017-04-29] MEDS ORDERED: ASPIRIN 81 MG CHEW TAB CHEW SCH (09:00)
[2017-04-29] MEDS ORDERED: CYAN1TAB24 (09:54)
[2017-04-29] MEDS ORDERED: IOHEXOL 350 MG/ML 10 ML VIAL (for RAD DIAG) IVCONTRAST ONE (10:41)
--- NOTE | 2017-04-29 10:54 | RADRPT ---
EXAM DATE/TIME: 04/29/2017 10:38 [facility] COMPARISON: No previous studies available for comparison. INDICATIONS : Mid sternal pain for 45 minutes. IV CONTRAST: 75 cc Omnipaque 350 (iohexol) IV RADIATION DOSE: 23.38 CTDIvol (mGy) MEDICAL HISTORY : Hypertension. SURGICAL HISTORY : Tubal ligation. Hysterectomy.Appendectomy. ENCOUNTER: Initial ACUITY: 1 day PAIN SCALE: 4/10 LOCATION: Bilateral chest TECHNIQUE: Volumetric scanning of the chest was performed using a pulmonary embolism protocol MIP images were re constructed. Using automated exposure control and adjustment of the mA and/or kV according to patien t size, radiation dose was kept as low as reasonably achievable to obtain optimal diagnostic quality images. DICOM format image data is available electronically for review and comparison. Follow-up recommendations for detected pulmonary nodules are based at a minimum on nodule size and pa tient risk factors according to Fleischner Society Guidelines. FINDINGS: PULMONARY ARTERIES: No filling defects are seen in the pulmonary arteries through the segmental level. LUNGS: There is no consolidation or pneumothorax . No concerning pulmonary nodule is visualized. PLEURAE: There is no pleural thickening or pleural effusion. MEDIASTINUM: There is good visualization of the great vessels of the middle mediastinum. No evidence of mediastin al or hilar adenopathy/mass. MUSCULOSKELETAL: Within normal limits for patient age. MISCELLANEOUS: The visualized upper abdominal organs demonstrate no acute abnormality. Left renal cyst CONCLUSION: No evidence of pulmonary embolism Adonay Hansen MD on April 29, 2017 at 10:47 Board Certified Radiologist. This report was verified electronically.
[2017-04-29 11:00] VITALS: BP 158/67; PULSE 56; RESP 20; O2SAT 100
--- NOTE | 2017-04-29 13:17 | EKG ---
Date Performed: 04/29/2017 Time Performed: 07:00:18 PTAGE: 67 years EKG: SINUS BRADYCARDIA BORDERLINE ECG PREVIOUS TRACING 12/20/16 Compared to prior tracing no significant change DOCTOR: Ezequiel Ordonez Interpretating Date/Time 04/29/2017 13:12:48
[2017-04-29 13:26] LABS: CREATINE KINASE 61 U/L (26-192)
[2017-04-29 14:00] VITALS: BP 167/78; PULSE 56; RESP 17; O2SAT 96
[2017-04-29] MEDS ORDERED: CYCL5TAB PO (14:16)
[2017-04-29] MEDS ORDERED: HYDR-3533 PO (14:16)
--- NOTE | 2017-04-30 05:16 | EKG ---
Date Performed: 04/29/2017 Time Performed: 13:31:51 PTAGE: 67 years EKG: SINUS BRADYCARDIA BORDERLINE ECG INTERPRETATION BASED ON A DEFAULT AGE OF 38 YEARS PREVIOUS TRACING : 04/29/2017 07.00 DOCTOR: Master Vergara Interpretating Date/Time 04/30/2017 05:08:23
== END 2017-04-29 15:27 | disposition home or self-care (01) ==
LOC: NEPC 06:32
DX: R07.89 Other chest pain (principal); I25.10 Atherosclerotic heart disease of native coronary artery without angina pectoris
CPT/HCPCS: 71010; 71275; 80048; 82550; 84484; 85025; 85379; 85610; 85730; 93005; 96374; 96375; 99285; J2270; Q9967

== ENCOUNTER 2017-06-08 02:18 | Emergency (ER) | payer MEDICARE ==
[~2017-06-08] VITALS: Ht 157.5 cm; Wt 59.1 kg
[~2017-06-08 02:18] MED LIST changes: +ASPI-516 CHEW; -ASPI81CH CHEW; +CYAN1TAB24; +CYCL5TAB PO; +HYDR-3533 PO; -MEDR4PAK PO; -TRAM50TA PO
[2017-06-08 02:21] VITALS: BP 122/88; PULSE 53; RESP 16; TEMP 98.3; O2SAT 98
--- NOTE | 2017-06-08 02:52 | PD ---
HPI Chief Complaint: Chest Pain Time Seen by Provider: 02:52 Travel History International Travel<30 days: No Contact w/Intl Traveler<30days: No Traveled to known affect area: No History of Present Illness HPI 67-year-old female came to the emergency room with history of substernal chest pain that has been going on for 5 days. However patient says that at 1:00 this morning she was woken up from severe left-sided chest pain under her breast. Currently she said the pain is 8 out of 10. No history of vomiting, syncopal episode or shortness of breath. She has had some cough and has been diagnosed with bronchitis by her primary care. However she continues to feel very weak she says. She had a stress test done 6 months ago at [place] which was negative for acute coronary syndrome. She has a tree deadener Dr. Ribeiro who saw her 2 weeks after the stress test and reassured her that she did not have any blockage. However patient says she just doesn't feel right and has been really bothered by the pain and the constant weakness. She is not a smoker. She takes 1 baby aspirin every day. Patient has never had any stents. Vital signs are stable. [facility] Past Medical History Narrative Medical List of her past medical, surgical, social and family history is reviewed from the nursing note. Asthma: No Blood Disorders: No Anxiety: Yes Depression: No Heart Rhythm Problems: No Cancer: Yes (BREAST BENIGN ) Cardiovascular Problems: Yes (HTN) High Cholesterol: No Chemotherapy: Yes Chest Pain: No Congestive Heart Failure: No COPD: No Diabetes: No Diminished Hearing: No Endocrine: No Gastrointestinal Disorders: Yes (Irritable Bowel Syndrome) Genitourinary: No Hypertension: Yes Immune Disorder: No Musculoskeletal: No Neurologic: No Psychiatric: No Reproductive: No Respiratory: No Migraines: Yes Radiation Therapy: No Sleep Apnea: No Thyroid Disease: No Tubal Ligation: Yes Past Surgical History Appendectomy: Yes Body Medical Devices: chip on right side breast Eye Surgery: Yes (CATARACT) Gynecologic Surgery: Yes (HYSTERECTOMY) Hysterectomy: Yes Other Surgery: Yes (hystectomy, appendectomy, tubal ligation) Social History Alcohol Use: Yes (occ.) Tobacco Use: No Substance Use: No Allergies-Medications (Allergen,Severity, Reaction): Coded Allergies: ibuprofen (Verified Allergy, Mild, 06/08/17) benzonatate (Verified Allergy, Unknown, 06/08/17) SOB Comments List of her allergies reviewed from the nursing note. Reported Meds & Prescriptions Reported Meds & Active Scripts Active Flexeril (Cyclobenzaprine HCl) 5 Mg Tab 5 Mg PO TID Reported B12 (Cyanocobalamin) 1,000 Mcg Tab 5,000 Mcg BID Letrozole 2.5 Mg Tab 1 Tab PO DAILY Multiple Vitamin 1 Tab 1 Tab PO DAILY Aspirin 81 Mg Chew 81 Mg CHEW DAILY Narrative Medication List of her home medications reviewed from the nursing note. Review of Systems Except as stated in HPI: all other systems reviewed are Neg Cardiovascular: Positive: Chest Pain or Discomfort Neurologic: Positive: Weakness Physical Exam Narrative GENERAL: Awake, alert, anxious, moderate distress SKIN: Focused skin assessment warm/dry. HEAD: Atraumatic. Normocephalic. EYES: Pupils equal and round. No scleral icterus. No injection or drainage. ENT: No nasal bleeding or discharge. Mucous membranes pink and moist. NECK: Trachea midline. No JVD. CARDIOVASCULAR: Regular rate and rhythm. No murmur appreciated. RESPIRATORY: No accessory muscle use. Clear to auscultation. Breath sounds equal bilaterally. GASTROINTESTINAL: Abdomen soft, non-tender, nondistended. Hepatic and splenic margins not palpable. MUSCULOSKELETAL: No obvious deformities. No clubbing. No cyanosis. No edema. NEUROLOGICAL: Awake and alert. No obvious cranial nerve deficits. Motor grossly within normal limits. Normal speech. PSYCHIATRIC: Appropriate mood and affect; insight and judgment normal. Data Data Last Documented VS Orders Orders Electrocardiogram (06/08/17 02:57) Basic Metabolic Panel (Bmp) (06/08/17 02:57) Ckmb (Isoenzyme) Profile (06/08/17 02:57) Complete Blood Count With Diff (06/08/17 02:57) D-Dimer (06/08/17 02:57) Magnesium (Mg) (06/08/17 02:57) Prothrombin Time / Inr (Pt) (06/08/17 02:57) Act Partial Throm Time (Ptt) (06/08/17 02:57) Troponin I (06/08/17 02:57) Chest, Single Ap (06/08/17 02:57) Ecg Monitoring (06/08/17 02:57) Bilateral Bp Monitoring (06/08/17 02:57) Iv Access Insert/Monitor (06/08/17 02:57) Oximetry (06/08/17 02:57) Oxygen Administration (06/08/17 02:57) Aspirin Chew (Aspirin Chew) (06/08/17 03:00) Sodium Chloride 0.9% Flush (Ns Flush) (06/08/17 03:00) Troponin I (06/08/17 06:00) Ed Discharge Order (06/08/17 07:03) Electrocardiogram (06/08/17 06:41) Labs Laboratory Tests Test 06/08/17 03:00 06/08/17 06:02 White Blood Count 6.0 TH/MM3 Red Blood Count 3.37 MIL/MM3 Hemoglobin 10.4 GM/DL Hematocrit 30.7 % Mean Corpuscular Volume 91.1 FL Mean Corpuscular Hemoglobin 30.8 PG Mean Corpuscular Hemoglobin Concent 33.8 % Red Cell Distribution Width 13.1 % Platelet Count 228 TH/MM3 Mean Platelet Volume 8.6 FL Neutrophils (%) (Auto) 39.9 % Lymphocytes (%) (Auto) 47.9 % Monocytes (%) (Auto) 7.6 % Eosinophils (%) (Auto) 3.8 % Basophils (%) (Auto) 0.8 % Neutrophils # (Auto) 2.4 TH/MM3 Lymphocytes # (Auto) 2.9 TH/MM3 Monocytes # (Auto) 0.5 TH/MM3 Eosinophils # (Auto) 0.2 TH/MM3 Basophils # (Auto) 0.0 TH/MM3 CBC Comment DIFF FINAL Differential Comment Prothrombin Time 11.0 SEC Prothromb Time International Ratio 1.0 RATIO Activated Partial Thromboplast Time 22.5 SEC D-Dimer Quantitative (PE/DVT) 0.28 MG/L FEU Blood Urea Nitrogen 11 MG/DL Creatinine 0.67 MG/DL Random Glucose 95 MG/DL Calcium Level 8.4 MG/DL Magnesium Level 2.0 MG/DL Sodium Level 136 MEQ/L Potassium Level 4.6 MEQ/L Chloride Level 100 MEQ/L Carbon Dioxide Level 29.3 MEQ/L Anion Gap 7 MEQ/L Estimat Glomerular Filtration Rate 87 ML/MIN Total Creatine Kinase 51 U/L Troponin I LESS THAN 0.02 NG/ML LESS THAN 0.02 NG/ML MDM Medical Decision Making Medical Screen Exam Complete: Yes Emergency Medical Condition: Yes Medical Record Reviewed: Yes Interpretation(s) Twelve-lead EKG was reviewed by me. Normal sinus rhythm, normal axis, cardiac, nonspecific ST-T wave changes. Heart rate of 53 bpm. Differential Diagnosis ACS, PE, pneumonia, non-STEMI, nonspecific chest pain Narrative Course 3:21 AM patient is getting 2 baby aspirin's. Awaiting for the blood test results and the chest x-ray. 5:49 AM blood test results of back and within normal limit. I've ordered a second troponin that is due at 6 AM. If that's negative I'll discharge her home. Patient had a stress test on 6 months ago which was negative. She has her own tree deadener that she can see as an outpatient. Procedures EKG Prior to Arrival: No Diagnosis Primary Impression: Atypical chest pain Referrals: Primary Care Physician Additional Instructions: Please follow-up with your primary care as well as your tree deadener. Return to the ER if the condition worsens or any other new concerns. Med/Other Pt SpecificInfo: No Change to Meds Disposition: 01 DISCHARGE HOME Condition: Stable Wilton Montero MD Jun 08, 2017 02:52
[2017-06-08] MEDS ORDERED: ASPIRIN 81 MG CHEW TAB PO ONE (03:00)
[2017-06-08] MEDS ORDERED: SODIUM CHLORIDE 0.9% FLUSH 10 ML FLUSH IVF PRN (03:00)
[2017-06-08 03:17] LABS: AUTOMATED NEUTROPHIL # 2.4 TH/MM3 (1.8-7.7); BASOPHIL % 0.8 % (0.0-2.0); EOSINOPHIL # 0.2 TH/MM3 (0-0.4); EOSINOPHIL % 3.8 % (0.0-4.0); HEMATOCRIT 30.7 % (35.0-46.0); HEMO FLAGS DIFF FINAL; LYMPH % 47.9 % (9.0-44.0); LYMPHOCYTE # 2.9 TH/MM3 (1.0-4.8); MEAN CELL VOLUME 91.1 FL (80.0-100.0); MEAN CORPUSCULAR HEMOGLOBIN 30.8 PG (27.0-34.0); MEAN CORPUSCULAR HGB CONC 33.8 % (32.0-36.0); MONO % 7.6 % (0.0-8.0); NEUT % 39.9 % (16.0-70.0); PLATELET COUNT 228 TH/MM3 (150-450); RED BLOOD COUNT 3.37 MIL/MM3 (4.00-5.30); RED CELL DISTRIBUTION WIDTH 13.1 % (11.6-17.2)
[2017-06-08 03:32] LABS: APTT (PATIENT) 22.5 SEC (24.3-30.1)
[2017-06-08 03:43] LABS: ANION GAP 7 MEQ/L (5-15); BICARBONATE 29.3 MEQ/L (21.0-32.0); BLOOD UREA NITROGEN 11 MG/DL (7-18); CHLORIDE 100 MEQ/L (98-107); GLOMERULAR FILTRATION RATE 87 ML/MIN (>89); POTASSIUM 4.6 MEQ/L (3.5-5.1); SODIUM (NA) 136 MEQ/L (136-145)
--- NOTE | 2017-06-08 03:47 | RADRPT ---
EXAM DATE/TIME: 06/08/2017 03:02 [facility] COMPARISON: CHEST SINGLE AP, April 29, 2017, 7:38. INDICATIONS : Chest pain. MEDICAL HISTORY : Hypertension. Cardiovascular disease. Carcinoma, breast. SURGICAL HISTORY : None. ENCOUNTER: Initial ACUITY: 2 days PAIN SCORE: 4/10 LOCATION: Left chest FINDINGS: A single view of the chest demonstrates the lungs to be symmetrically aerated without evidence of mas s, infiltrate or effusion. The cardiomediastinal contours are unremarkable. Osseous structures are intact. CONCLUSION: Normal examination. Braulio Tse MD on June 08, 2017 at 3:45 Board Certified Radiologist. This report was verified electronically.
[2017-06-08 03:48] LABS: CREATINE KINASE 51 U/L (26-192)
[2017-06-08 06:48] VITALS: BP 148/72; PULSE 50; RESP 16; O2SAT 98
--- NOTE | 2017-06-08 18:25 | EKG ---
Date Performed: 06/08/2017 Time Performed: 06:41:13 PTAGE: 67 years EKG: SINUS BRADYCARDIA BORDERLINE ECG PREVIOUS TRACING : 06/08/2017 02.24 Compared to prior tracing no significant change DOCTOR: Yin Patterson Interpretating Date/Time 06/08/2017 18:23:44
--- NOTE | 2017-06-08 18:35 | EKG ---
Date Performed: 06/08/2017 Time Performed: 02:24:33 PTAGE: 67 years EKG: SINUS BRADYCARDIA BORDERLINE ECG PREVIOUS TRACING : 04/29/2017 13.31 Compared to prior tracing no significant change DOCTOR: Yin Patterson Interpretating Date/Time 06/08/2017 18:34:13
== END 2017-06-08 07:19 | disposition home or self-care (01) ==
LOC: NEPC 02:18
DX: R07.89 Other chest pain (principal); R00.1 Bradycardia, unspecified; I10 Essential (primary) hypertension; F41.9 Anxiety disorder, unspecified
CPT/HCPCS: 71010; 80048; 82550; 83735; 84484; 85025; 85379; 85610; 85730; 93005; 99285

== ENCOUNTER 2017-08-15 11:06 | Day surgery (SDC) | payer MEDICARE ==
[~2017-08-15] VITALS: Ht 157.5 cm; Wt 59.4 kg
[~2017-08-15 11:06] MED LIST changes: -HYDR-3533 PO
[2017-08-15] MEDS ORDERED: IOHEXOL 350 MG/ML 50 ML BTL (for Cath Lab) OTHER ONE (11:07)
[2017-08-15] MEDS ORDERED: NS 1000P @30 MLS/HR (KVO) IV SCH (11:30)
[2017-08-15 11:45] VITALS: BP 144/79; PULSE 55; RESP 18; TEMP 97.9; O2SAT 100
[2017-08-15 13:07] LABS: AUTOMATED NEUTROPHIL # 1.8 TH/MM3 (1.8-7.7); BASOPHIL % 0.9 % (0.0-2.0); EOSINOPHIL # 0.1 TH/MM3 (0-0.4); EOSINOPHIL % 3.1 % (0.0-4.0); HEMATOCRIT 32.6 % (35.0-46.0); HEMOGLOBIN 11.1 GM/DL (11.6-15.3); LYMPH % 45.1 % (9.0-44.0); LYMPHOCYTE # 1.8 TH/MM3 (1.0-4.8); MEAN CELL VOLUME 92.2 FL (80.0-100.0); MEAN CORPUSCULAR HEMOGLOBIN 31.5 PG (27.0-34.0); MEAN CORPUSCULAR HGB CONC 34.1 % (32.0-36.0); MEAN PLATELET VOLUME 8.7 FL (7.0-11.0); MONO % 5.4 % (0.0-8.0); MONOCYTE # 0.2 TH/MM3 (0-0.9); NEUT % 45.5 % (16.0-70.0); PLATELET COUNT 194 TH/MM3 (150-450); RED BLOOD COUNT 3.53 MIL/MM3 (4.00-5.30); RED CELL DISTRIBUTION WIDTH 13.1 % (11.6-17.2)
[2017-08-15 13:16] LABS: INTERNATIONAL NORMALIZED RATIO 1.1 RATIO; PROTHROMBIN TIME - PATIENT 10.7 SEC (9.8-11.6)
[2017-08-15 13:23] LABS: BICARBONATE 31.3 MEQ/L (21.0-32.0); CALCIUM 9.4 MG/DL (8.5-10.1); CREATININE 0.58 MG/DL (0.50-1.00)
[2017-08-15] MEDS ORDERED: HEPARIN-NS/PF INJ 500 ML ONE (13:38)
[2017-08-15] MEDS ORDERED: MIDAZOLAM HCL 2 MG/2 ML VIAL ONE (13:39)
--- NOTE | 2017-08-15 14:14 | CATHPROC ---
[facility] HIS Report Study Information Study Number Admission Scheduled Start Study Start [id number] Aug 15 2017 11:06AM 08/15/2017 Aug 15 2017 1:24PM [facility] Cardiac Catheterization Admit Source Facility Department Other [facility] - Quality Project Manager Physician and Clinical Staff Initial Ezequiel Joshua Drilling Machine Runner Brenda Gurrola BSN Recorder Kaylee Little ,RT(R) Recorder Staci Mendez,RT(R) Scrub Rubin Mcmahon,RT(R) Procedures Performed Procedure Location (Site) Vessel Name Coronary Angiograms LCA Left Coronary Coronary Angiograms RCA Right Coronary L Heart Cath LV Gram-hand inj. LV LV Ventricle Equipment Time Junior Software Developer Description Size Mfg Part Number Used/Scraped TRANSDUCER, TRUWAVE [id number] 13:27 PARADA BARFIELD * Used W/STOCKCOCK *[id number] *[id number] *[id number] 13:27 MEDLINE INDUSTRIES PACK, CCL CUSTOM * Used *[id number] 13:27 Genomind PACER PEN, SKIN DUAL W/ RULER * Used *[id number] 13:27 ConferenceEdge WIRE, 3MMJ .035 180CM 180CM Used *[id number] 13:27 NAMIC MANIFOLD, 4 PORT * Used *[id number] 13:27 NYCOMED OMNIPAQUE, 350 MG, 150ML 150ML [id number] Used [id number] 13:27 SANTI[employer]O MEDICAL BLANKET,WARM AIR CCL * Used *[id number] 13:27 TERUMO MEDICAL SHEATH, FR4 TERUMO (10CM) FR 4 Used *[id number] Scrap: CATHETER, FR5 SWAN JOANNE 13:27 PARADA BARFIELD FR 5 [id number] *[id number] Procedure MONITOR Aborted Scrap: [id number] 13:27 TERUMO MEDICAL SHEATH, FR6 TERUMO (10CM) FR 6 Procedure *[id number] Aborted History: Current Medications Medication Dosage/Unit Route Frequency Last Date/Time Taken ASA History: Allergies Allergy Reaction Motleslie Rodriguez Perles benzonatate History: Risk Factors Family History of Hypertension Dyslipidemia Previous CO Previous Heart Failure Premature CAD No No Yes No No Prior Valve Prior PCI Prior CABG Surgery No No No Cerebrovascular Peripheral Artery Chronic Lung On Dialysis Diabetes Disease Disease Disease No No No No No History: Stress Tests Stress or Imaging Studies Performed Yes Standard Exercise Stress Test No Stress Echo No Stress Test SPECT Stress Test SPECT Result Yes Positive Stress Test CMR No Cardiac CTA Coronary Calcium Score No No History: Other Current Smoker No Labs Hgb (g/dl) Hct (%) WBC (l/cumm) Platelets (thousands) 11.60-17.00 35.00-51.00 4.00-11.00 150.00-450.00 11.1 32.6 4.1 194 Glucose (mg/dl) BUN (mg/dl) Creatinine (mg/dl) BUN:Creatinine (1:x) 74.00-106.00 7.00-18.00 0.50-1.30 10.00-20.00 94 6 0.5 12 Na (meq/l) K (meq/l) 136.00-145.00 3.50-5.10 140 3.7 INR (PTT:PT) 0.90-1.10 1.1 CPK-MB (ng/ML) 0.50-3.60 Not Drawn Medication Medication Total Dose (Bolus/Oral) Medication Total Dosage/Unit 1% XYLOCAINE 20 mL FENTANYL 12.5 mcg VERSED 1 mg Medications (Bolus/Oral) Medication Time Given Dosage/Unit Administered By Reason 1% XYLOCAINE 08/15/2017 1:58:05 PM 20 mL Ezequiel Ordonez Patient arrived on 20 mL 1% XYLOCAINE given by Ezequiel Ordonez in Right Groin via Subcutaneous. Orde red by Ezequiel Ordonez. VERSED 08/15/2017 1:58:28 PM 1 mg Brenda Gurrola Patient arrived on 1 mg VERSED given by Brenda Gurrola BSN in Left Antecubital via Peripheral I V. Ordered by Ezequiel Ordonez. FENTANYL 08/15/2017 2:02:36 PM 12.5 mcg Brenda Gurrola 12.5 mcg FENTANYL given in lab by Brenda Gurrola BSN in Left Antecubital via Peripheral IV. Ord ered by Ezequiel Ordonez. Medication (Drip) Medication Time Given Dosage/Unit Concentration/Unit Diluent (ml) Solution IV Solutions 08/15/2017 1:38:41 PM 50 mL (IV) NaCl .9 Patient arrived on IV Solutions in Left Antecubital via Peripheral IV. Pump/Drip Flow using NaCl .9. Initial Case Assessment Cardiovascular HR Rhythm NIBP Chest Pain 55 devendra 139/77 0 Edema Present Skin color Skin None Normal Warm Dry Circulatory - Right Pulses Dorsalis Pedis Femoral 1 2 Scale (0,1,2,3,4,d) Circulatory - Left Pulses Dorsalis Pedis Femoral 1 2 Scale (0,1,2,3,4,d) Neurological State Oriented to time-place- Alert Moves all extremities person Respiration - General Respiration Rate SpO2 (%) (B/min) 7 100 Final Case Assessment Cardiovascular HR Rhythm NIBP Chest Pain 55 devendra 139/77 0 Edema Present Skin color Skin None Normal Warm Dry Circulatory - Right Pulses Dorsalis Pedis Femoral 1 2 Scale (0,1,2,3,4,d) Circulatory - Left Pulses Dorsalis Pedis Femoral 1 2 Scale (0,1,2,3,4,d) Neurological State Oriented to time-place- Alert Moves all extremities person Respiration - General Respiration Rate SpO2 (%) (B/min) 7 100 Chronological Log Time Study Chronological Log 13:38:18 Patient arrived via Bed. 13:38:19 Patient Name, D.O.B, / Armband Verified By R.N. 13:38:22 Consent signed by the physician and the patient and verified by the Quality Project Manager staff. 13:38:24 Verbal Stimulation=2 Physical Stimulation=2 Airway=2 Respiration=2 TOTAL=8. (0=absent, 1=li mited, 2=present) 13:38:33 Patient has been NPO for More than 6Hrs. 13:38:34 Skin Breakdown- none per patient 13:38:34 Patient Warmer Placed on the Table. 13:38:35 Markus Prominences Protected 13:38:40 A # 20 IV was noted in the Antecubital (left). Grade = 0 13:38:41 Patient arrived on IV Solutions in Left Antecubital via Peripheral IV. Pump/Drip Flow using NaCl .9. 13:38:42 History and physical on the chart or being dictated. Assessment: Initial Case, HR=55 BPM, Rhythm=devendra, AXXD=704/77 mmhg, Chest Pain=0, Edema=None, Color=Normal, Skin = Warm, Dry Right Pulses: Alessandro Ped=1, Femoral=2 13:38:43 Left Pulses: Alessandro Ped=1, Femoral=2 Neurological: State=Alert, Ox3, BURNETT Respiration: Resp=7 B/min, QcG2=226 % Vitals capture started with the following parameters, Patient=Adult, Interval=5 min, Initial Pr napuue=670 mmHg, 13:39:06 Deflation Rate=5 mmHg, Cuff placed on Left Arm 13:40:28 HR=54 bpm, SQZD=510/77 mmhg, ViV1=310.0 %, Resp=6 B/min, Souza=2 13:41:35 Reference ECG taken 13:44:44 HR=56 bpm, LIUK=908/78 mmhg, SpO2=98.0 %, Resp=10 B/min, Souza=2 13:46:58 Bilateral groins prepped with 2% chlorhexidine, and draped after a 3 minute waiting time. 13:49:45 HR=59 bpm, HTOU=106/78 mmhg, SpO2=99.0 %, Resp=9 B/min, Souza=2 13:50:19 MD paged 13:50:28 MD responded 13:51:20 Pressure channel 1 zeroed. 13:53:29 MD arrived. 13:54:48 HR=57 bpm, JNGO=550/78 mmhg, SpO2=99.0 %, Resp=14 B/min, Souza=2 Time Out. Correct patient, correct procedure, correct physician, power injector not loaded with contrast with surgical 13:57:29 team present. Time Out Concurred by MD and individual staff in procedure. 13:57:43 Case Start Patient arrived on 20 mL 1% XYLOCAINE given by Ezequiel Ordonez in Right Groin via Subcutaneous . Ordered by 13:58:05 Ezequiel Ordonez. Patient arrived on 1 mg VERSED given by Brenda Gurrola , MEHULN in Left Antecubital via Periph eral IV. Ordered by 13:58:28 Ezequiel Ordonez. 13:59:34 Access site was Right Femoral Artery. 13:59:49 HR=61 bpm, QGXE=477/74 mmhg, LdW6=650.0 %, Resp=20 B/min, Souza=2 14:00:12 A SHEATH, FR4 TERUMO (10CM) FR 4 was advanced into the Fem Art (right) using the Percutaneo us technique. 12.5 mcg FENTANYL given in lab by Brenda Gurrola BSN in Left Antecubital via Peripheral I V. Ordered by 14:02:36 Ezequiel Ordonez. 14:03:12 Attempted access to right femoral vein. No access gained. Right heart aborted. Recorded Pressure: LV, HR=58, Condition=Condition 1 14:03:57 (Left Ventricle) LV 142/3/9 14:04:12 The LV was manually injected with 10 cc's and visualized. OMNIPAQUE, 350 MG, 150ML 150ML us ed. Recorded Pressure: LV, Ao, HR=58, Condition=Condition 1 14:04:20 (Left Ventricle) LV 138/-1/8, (Aorta) Ao 136/67/96 14:04:48 HR=59 bpm, AQLM=792/75 mmhg, SpO2=97.0 %, Resp=15 B/min, Souza=2 Recorded Pressure: Ao, HR=59, Condition=Condition 1 14:04:48 (Aorta) Ao 137/72/98 14:04:53 The RCA was injected and visualized at various angles. OMNIPAQUE, 350 MG, 150ML 150ML used . 14:05:03 Catheter was removed A JL 4.0 INFINITI CATHETER FR 4 was advanced over a wire. OMNIPAQUE, 350 MG, 150ML 150ML was us ed for 14:05:06 injections. 14:06:02 The LCA was injected and visualized at various angles. OMNIPAQUE, 350 MG, 150ML 150ML used . 14:06:23 Catheter was removed 14:06:33 Case End 14:07:26 Sheath(s) left in place, will be removed in Holding Area 14:07:29 Sterile dressing applied to site 14:07:30 No case complications noted. 14:07:34 Cine recording checked. 14:08:05 Bedside Report will be given. 14:08:08 Contrast Scanned 14:08:12 A Left Heart Cath was performed. Assessment: Final Case, HR=55 BPM, Rhythm=devendra, ANFH=396/77 mmhg, Chest Pain=0, Edema=None, Color=Normal, Skin = Warm, Dry Right Pulses: Alessandro Ped=1, Femoral=2 14:08:37 Left Pulses: Alessandro Ped=1, Femoral=2 Neurological: State=Alert, Ox3, BURNETT Respiration: Resp=7 B/min, XkD5=979 % 14:09:49 HR=57 bpm, UMNP=737/72 mmhg, SpO2=97.0 %, Resp=25 B/min, Souza=2 14:12:08 Patient moved to stretcher 14:12:54 Vitals capture stopped. End Study - Contrast Media Used In Study Contrast Total Opened (mL) Total Used (mL) Total Wasted (mL) Omnipaque 40 40 0 End Study - Maximum Contrast Load Max Contrast Load (mL) 594.1 End Study - Radiation Exposure Fluoro Time (minutes) 0.8 End Study - Patient Disposition Complications Transferred To Interventional Outcome No Outpatient Bed No attempt made
[2017-08-15] MEDS ORDERED: MISC INFORMATION XX ONE (14:15)
[2017-08-15] MEDS ORDERED: BACITRACIN OINT 0.9 GM PKT TOP ONE (14:15)
[2017-08-15] MEDS ORDERED: SODIUM CHLORIDE 0.9% FLUSH 10 ML FLUSH IV FLUSH PRN (14:15)
[2017-08-15] MEDS ORDERED: ASPIRIN 81 MG CHEW TAB PO SCH (16:15)
[2017-08-15] MEDS ORDERED: SODIUM CHLORIDE 0.9% FLUSH 10 ML FLUSH IV FLUSH SCH (21:00)
--- NOTE | 2017-08-16 11:55 | MR ---
cc: EZEQUIEL SOLORZANO M.D. DATE: 08/16/2017 ATTENDING PHYSICIAN Ezequiel Solorzano MD PROCEDURE PREFORMED: Left heart catheterization, left ventriculopathy, coronary angiography. HISTORY: AKA; Flores Flores. The names were verified prior to procedure by myself personally. the left heart catheterization, left ventriculography, coronary angiography. The names were verified with the patient by myself personally prior to procedure. INDICATIONS 1. Unstable angina, severe worsening dyspnea on exertion. anginal equivalent unstable angina. 2. [place] cardiovascular class III angina, [place] heart association class III congestive heart failure. 3. The patient was brought to the cardiac position. Prepped and usual sterile fashion cc's of lidocaine was used to locally anesthetize the right artery and 4-Sudanese sheath was subsequently placed in the right common artery, 4-Sudanese sheath placed in the right common femoral artery, a 4-Sudanese JR-4, JL-4 catheter were used to perform, left and right coronary artery and left ventriculography. FINDINGS The LV pressure is 140/6-10, EF 60% Right coronary is dominant. No significant disease angiographically. Left main coronary has no significant disease angiographically. Left circumflex was no significant disease angiographically. First obtuse marginal vessel is medium size vessel with no significant disease angiographically. The remainder of the AV groove left circumflex vessel has no significant disease angiographically. There is a mid to distal obtuse marginal vessel which is medium in size bifurcates distally gives off both branches of the bifurcation of small 1 mm diameter vessels with no significant obstructive disease. The left anterior descending is transapical. There is mild disease in the midsegment up to 10% angiographically. The first and second diagonal arteries are small arteries, 4 mm diameter reference vessel diameter. No significant obstructive disease. CONCLUSION 1. Angiographically mild one-vessel coronary disease in right t system as detailed above. 2. Normal LV systolic function ejection fraction 60%. 3. Normal left ventricular pressure 140/6-10. RECOMMENDATIONS: 1. Continue aspirin 81 mg a day. 2. The patient will need her lipids, and, creatine kinase checked and have her lipids treated with NCP guidelines. 3. We will also recommend a noncardiac workup for her dyspnea as her LV pressures are normal. 4. Left ventricular systolic function is normal. 5. She has no significant obstructive coronary disease. MD SEN Franklin/joseph /2:09 PM /9:59 AM
--- NOTE | 2017-08-16 17:47 | EKG ---
Date Performed: 08/15/2017 Time Performed: 12:56:42 PTAGE: 67 years EKG: Sinus bradycardia. Normal ECG except for rate PREVIOUS TRACING : 06/08/2017 06.41 DOCTOR: Toya Dorado Interpretating Date/Time 08/16/2017 17:39:07
== END 2017-08-15 17:22 | disposition home or self-care (01) ==
LOC: HDIC 11:06 → HCAT 11:06
PROVIDERS: ATTEND Internal Medicine Interventional Cardiology
DX: I25.10 Atherosclerotic heart disease of native coronary artery without angina pectoris (principal); R06.09 Other forms of dyspnea; I10 Essential (primary) hypertension
CPT/HCPCS: 80048; 85025; 85610; 85730; 93005; 93458; 99152; C1769; C1893; J1644; J2250; J3010; Q9967

== ENCOUNTER 2018-03-14 14:59 | Observation (INO) ==
[2018-03-14] MEDS ORDERED: Morphine Inj 4 MG/ML Vial IV.PUSH ONE (15:22)
--- NOTE | 2018-03-14 15:44 | ED ---
HPI General Chief Complaint: Chest Pain Stated Complaint: Evac/Chest Pain Time Seen by Provider: 03/14/18 15:21 Source: patient Mode of arrival: EMS Limitations: no limitations History of Present Illness HPI narrative: Patient brought by EMS complaining of chest pain that radiated towards her back into her left shoulder. 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 Lea in the last year or 2. She is allergic to Bactrim. Her chest pain is rated at 8 out of 10 with a blood pressure 170/86.... Patient stated that she is not compliant with her medications because it makes her feel lethargic complaint: chest pain Complete Quality Measures for STEMI Alert Patients STEMI Alert: No Related Data Home Medications Medication Instructions Recorded Confirmed letrozole 2.5 mg PO DAILY 03/14/18 03/14/18 Allergies Allergy/AdvReac Type Severity Reaction Status Date / Time benzonatate Allergy Unknown Abdominal Verified 03/14/18 15:05 Pain sulfamethoxazole Allergy Rash Verified 03/14/18 15:05 [From Bactrim] trimethoprim [From Bactrim] Allergy Rash Verified 03/14/18 15:05 Review of Systems ROS: all other systems reviewed are negative PMFSH History History Provided By: Patient Medical History Medical History HTN (hypertension) (Acute) Social History Social History Substance History: No History of Abuse Second Hand Smoke Exposure: No Smoking Status: Never smoker Tobacco Type: Cigarettes How Often Do You Have a Drink Containing Alcohol: Monthly or less Recent Travel in [facility] within the Last 8 Weeks: No Recent Out of Country Travel within the Last 8 Weeks: No Immunization History Tetanus Immunization: >5 Years Hx Influenza Vaccine This Season: No Exam Narrative Exam Narrative: GENERAL: Well-nourished, well-developed patient in no apparent distress. SKIN: Warm and dry. HEAD: Atraumatic. Normocephalic. EYES: Pupils equal and round. No scleral icterus. No injection or drainage. ENT: No nasal bleeding or discharge. Mucous membranes pink and moist. NECK: Trachea midline. No JVD. CARDIOVASCULAR: Regular rate and rhythm. no rubs or gallops RESPIRATORY: No accessory muscle use. Clear to auscultation. Breath sounds equal bilaterally. GASTROINTESTINAL: Abdomen soft, non-tender, nondistended. No rebound or guarding MUSCULOSKELETAL: Extremities without clubbing, cyanosis, or edema. No obvious deformities. NEUROLOGICAL: Awake and alert. No obvious cranial nerve deficits. Motor grossly within normal limits. Five out of 5 muscle strength in the arms and legs. Normal speech. PSYCHIATRIC: Appropriate mood and affect; insight and judgment normal. Course Initial Documented Vital Signs Temperature 98.7 F 03/14/18 15:05 Pulse Rate 48 L 03/14/18 15:05 Respiratory Rate 20 03/14/18 15:05 Blood Pressure 170/86 H 03/14/18 15:05 Pulse Oximetry 99 03/14/18 15:05 Last Documented Vital Signs Temperature 98.7 F 03/14/18 15:05 Pulse Rate 48 L 03/14/18 15:05 Respiratory Rate 20 03/14/18 15:05 Blood Pressure 170/86 H 03/14/18 15:05 Pulse Oximetry 99 03/14/18 15:49 Medical Decision Making MDM Narrative Medical Screen Exam Complete: Yes Emergency Medical Condition: Yes Differential Diagnosis Differential Diagnosis: Pneumonia versus CO versus non-STEMI versus pneumothorax versus pleural effusion Medical Records Medical records reviewed: Yes I reviewed the patient's medical records. Lab Data Result diagrams: 03/14/18 15:37 Lab Results 03/14/18 03/14/18 03/14/18 Range/Units 15:37 15:37 15:37 WBC 4.3 (4.0-11.0) th/mm3 RBC 3.48 L (4.00-5.30) mil/mm3 Hgb 11.0 L (11.6-15.3) gm/dL Hct 32.6 L (35.0-46.0) % MCV 93.8 (80.0-100.0) fL MCH 31.7 (27.0-34.0) pg MCHC 33.8 (32.0-36.0) % RDW 13.5 (11.6-17.2) % Plt Count 192 (150-450) th/mm3 MPV 8.9 (7.0-11.0) fL Neut % (Auto) 51.4 (16.0-70.0) % Lymph % (Auto) 37.4 (9.0-44.0) % Drew % (Auto) 8.0 (0.0-8.0) % Eos % (Auto) 2.5 (0.0-4.0) % Baso % (Auto) 0.7 (0.0-2.0) % Neut # (Auto) 2.2 (1.8-7.7) th/mm3 Lymph # (Auto) 1.6 (1.0-4.8) th/mm3 [place] # (Auto) 0.3 (0.0-0.9) th/mm3 Eos # (Auto) 0.1 (0.0-0.4) th/mm3 Baso # (Auto) 0.0 (0.0-0.2) th/mm3 WBC Differential . Differential Comment Auto diff final PT 10.7 (9.8-11.6) sec INR 1.1 Ratio APTT 23.0 L (24.3-30.1) sec Total Creatine Kinase 82 (26-192) U/L Imaging Data Radiologist's impression: Chest X-Ray 03/14/18 15:22 CONCLUSION: 1. No acute cardiopulmonary disease. ECG Data EKG Prior to Arrival: No Attestation: I personally reviewed and interpreted this ECG as follows: Prior ECG tracings: not available for review Interpretation: Sinus bradycardia, 42 bpm, normal interval, no evidence of any ST elevation CO PATTERN NOTED Discharge Plan Discharge Disposition Patient Disposition: 30 Still Patient Discharge Condition Condition: Fair Discharge Details Diagnosis: Chest pain Physicians Team ED Provider: Emmanuel Heath Primary Care Provider: Richelle Ochoa Rxs /Orders / Referrals /Forms Prescriptions: No Action letrozole 2.5 mg Tablet 2.5 mg PO DAILY RF: 0 Discharge Instructions Patient Printed Instructions: Chest Pain (ED) Status ED Status: With Doctor
--- NOTE | 2018-03-14 16:15 | XR ---
EXAM DATE: 03/14/2018 4:09 PM EDT AGE/SEX: 67 years / Female INDICATIONS: Dizziness. CLINICAL DATA: This is the patient's initial encounter. Patient reports that signs and symptoms have been present for 1 week and indicates a pain score of 0/10. MEDICAL/SURGICAL HISTORY: . Hypertension. Tubal ligation. Hysterectomy.Appendectomy . [place] [facility] [place]. . FINDINGS: No new focal pleural or parenchymal opacities. The cardiomediastinal contours are unremarkable. Osse ous structures are intact. CONCLUSION: 1. No acute cardiopulmonary disease. Electronically signed by: Jeffery Mancuso MD 03/14/2018 4:14 PM EDT
[2018-03-14 16:30] LABS: Baso % (Auto) 0.7 % (0.0-2.0); Eos # (Auto) 0.1 th/mm3 (0.0-0.4); Eos % (Auto) 2.5 % (0.0-4.0); Hematocrit 32.6 % (35.0-46.0); Lymph # (Auto) 1.6 th/mm3 (1.0-4.8); Lymph % (Auto) 37.4 % (9.0-44.0); Mean Corpuscular HGB Conc 33.8 % (32.0-36.0); Mean Corpuscular Hemoglobin 31.7 pg (27.0-34.0); Mean Corpuscular Volume 93.8 fL (80.0-100.0); Mean Platelet Volume 8.9 fL (7.0-11.0); Mono # (Auto) 0.3 th/mm3 (0.0-0.9); Neut # (Auto) 2.2 th/mm3 (1.8-7.7); Neut % (Auto) 51.4 % (16.0-70.0); Platelet Count 192 th/mm3 (150-450); Red Blood Count 3.48 mil/mm3 (4.00-5.30); Red Cell Distribution Width 13.5 % (11.6-17.2); White Blood Count 4.3 th/mm3 (4.0-11.0)
[2018-03-14 16:41] LABS: INR 1.1 Ratio; Prothrombin Time 10.7 sec (9.8-11.6)
[2018-03-14 18:16] LABS: Anion Gap 10 meq/L (5-15); Blood Urea Nitrogen 9 mg/dL (7-18); Calcium 8.5 mg/dL (8.5-10.1); Carbon Dioxide 29.1 meq/L (21.0-32.0); Chloride 104 meq/L (98-107); Glomerular Filtration Rate Greater Than 89 mL/min (>89); Glucose,Random 90 mg/dL (74-106); Potassium 3.7 meq/L (3.5-5.1); Sodium 143 meq/L (136-145)
[2018-03-14] MEDS ORDERED: Morphine Inj 4 MG/ML Vial IV.PUSH PRN (19:04)
[2018-03-14] MEDS ORDERED: Acetaminophen 500 MG Tablet PO PRN (21:04)
[2018-03-14 21:21] LABS: Creatine Kinase 72 U/L (26-192)
[2018-03-14] MEDS: Sod Chloride 0.9% Inj 1,000 ML IV.CONT SCH (21:34)
--- NOTE | 2018-03-14 22:26 | CT ---
EXAM DATE: 03/14/2018 9:42 PM EDT AGE/SEX: 67 years / Female INDICATIONS: Chest pain for two weeks. CLINICAL DATA: This is the patient's initial encounter. Patient reports that signs and symptoms have been present for 2 weeks and indicates a pain score of 7/10. MEDICAL/SURGICAL HISTORY: Hypertension. None. RADIATION DOSE: 8.72 CTDI (mGy) COMPARISON: No prior exams available for comparison. TECHNIQUE: Volumetric scanning was performed using a multi-row detector CT scanner during bolus infu simon of 70 ml Omnipaque 350 (iohexol) nonionic water-soluble contrast as a single exam dose. The [place] a was post processed with a variety of visualization algorithms including full volume maximum intensi ty projection and sliding thin slab reformation. Using automated exposure control and adjustment of t he mA and/or kV according to patient size, radiation dose was kept as low as reasonably achievable to obtain optimal diagnostic quality images. DICOM format image data is available electronically for r eview and comparison. FINDINGS: Pulmonary Arteries: No filling defects are seen in the pulmonary arteries out to the subsegmental ve ssels. The left and right pulmonary arteries are normal in diameter. Lung: No infiltrates seen. Effusion: None. Mediastinum: No evidence of mediastinal or hilar adenopathy. Other: The axilla is unremarkable. CONCLUSION: 1. The study is negative for pulmonary embolism. Electronically signed by: You Herbert MD 03/14/2018 10:24 PM EDT
[2018-03-15 03:21] LABS: Creatine Kinase 61 U/L (26-192)
[2018-03-15 05:32] VITALS: PULSE 56; O2SAT 95
[2018-03-15] MEDS: Sod Chloride 0.9% Inj 1,000 ML IV.CONT SCH (06:35)
[2018-03-15 08:03] VITALS: BP 131/60; RESP 16; TEMP 98.4
--- NOTE | 2018-03-15 08:36 | P.HPCA ---
History of Present Illness Primary Care Physician: Sally Sinclair Chief Complaint: Chest pain and vertigo History of Present Illness: This is a 67-year-old female with history of vertigo the presents to ED with complaint of 2 weeks of vertigo and then yesterday felt unsteady in her legs while walking. She went to her PCP office for this yesterday while at the office developed chest pain and was told to come to ED. She states the discomfort lasted all day. She cannot recall being short of breath, nauseous, or diaphoretic with her symptoms. Denies cardiac history but states she has been evaluated. Upon reviewing records she had a cardiac catheterization August 16, [address] Ordonez revealing essentially normal heart cath, there is 10% mid segment disease of the LAD. 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 She is doing okay at this time. Offers no complaints. Non-smoker. Family history of CAD. - Diagnosis (1) Atypical chest pain Review of Systems General: Patient denies fevers, chills, and recent travel. HEENT: Patient denies headache, sore throat, difficulty swallowing. Complains of vertigo. Cardiovascular: Has the chest discomfort as mentioned above. Denies sensation of heart beating rapidly or irregularly. No syncope. Denies diaphoresis. Respiratory: Denies shortness of breath or inspirational chest discomfort. Denies coughing wheezing or hemoptysis. GI: Patient denies nausea, vomiting, diarrhea, abdominal pain, bloody stools. Musculoskeletal: Patient denies joint pain or edema. Denies calf pain or edema. Neurovascular: Patient denies numbness, tingling, weakness in extremities. Denies headache. Complains of vertigo. Endocrine: Denies polyuria and polydipsia. Hematologic: Denies easy bruising. Skin: Denies rash or itching. PMFSH - History History Provided By: Patient - Medical History Medical History: Medical History (Last Reviewed 03/14/18 @ 15:43 by Emmanuel Heath) HTN (hypertension) - Tobacco History Second Hand Smoke Exposure: No Tobacco Use In Past 30 Days: No Smoking Status: Never smoker Tobacco Type: Cigarettes - Alcohol History How Often Do You Have a Drink Containing Alcohol: Monthly or less - Substance Use History Substance History: No History of Abuse - Travel History Recent Travel in the [place] Within the Last 8 Weeks: No Recent Travel Out of the Country Within the Last 8 Weeks: No - Immunization History Tetanus Immunization: >5 Years Hx Influenza Vaccine This Season: No Medications and Allergies Active Medications: Active Medications Acetaminophen (Tylenol) 500 mg PO Q4H PRN PRN Reason: HEADACHE Last Admin: 03/15/18 06:45 Dose: 500 mg Carvedilol (Coreg) 3.125 mg PO BID [facility] Last Admin: 03/14/18 21:35 Dose: 3.125 mg Sodium Chloride (Ns Inj) 1,000 mls @ 100 mls/hr IV.CONT .Q10H [facility] Last Admin: 03/15/18 06:35 Dose: 100 mls/hr Morphine Sulfate (Morphine Inj) 2 mg IV.PUSH Q4H PRN PRN Reason: PAIN SCALE 8 TO 10 Last Admin: 03/14/18 21:57 Dose: 2 mg Nitroglycerin (Nitrostat Sl) 0.4 mg SL Q5M PRN PRN Reason: CHEST PAIN Ondansetron HCl (Zofran Inj) 4 mg IV.PUSH Q6H PRN PRN Reason: NAUSEA Ondansetron HCl (Zofran Inj) 4 mg IV.PUSH Q6H PRN PRN Reason: NAUSEA Sodium Chloride (Ns Flush) 2 ml IV.FLUSH UNSCH PRN PRN Reason: FLUSH AFTER USING IV ACCESS Allergies Allergy/AdvReac Type Severity Reaction Status Date / Time benzonatate Allergy Unknown Abdominal Verified 03/14/18 15:05 Pain sulfamethoxazole Allergy Rash Verified 03/14/18 15:05 [From Bactrim] trimethoprim [From Bactrim] Allergy Rash Verified 03/14/18 15:05 Home Medications Medication Instructions Recorded Confirmed Type letrozole 2.5 mg PO DAILY 03/14/18 03/14/18 History Exam Vital signs: Vital Signs 03/14/18 15:05 03/14/18 15:49 03/14/18 18:43 Temperature 98.7 F 98.8 F Pulse Rate 48 L 49 L Respiratory Rate 20 18 Blood Pressure 170/86 H 100/55 L Pulse Oximetry 99 99 97 03/14/18 19:00 03/15/18 00:00 03/15/18 04:00 Temperature 98.1 F 98.0 F Pulse Rate 57 L 45 L 56 L Respiratory Rate 16 19 17 Blood Pressure 97/58 L 103/59 L 98/50 L Pulse Oximetry 98 96 95 08/22/18 08:00 Temperature 98.4 F Pulse Rate 56 L Respiratory Rate 16 Blood Pressure 131/60 Pulse Oximetry 95 Intake & Output 03/14/18 03/15/18 03/15/18 18:59 06:59 18:59 Intake Total 1000 / 1000 Balance 1000 / 1000 Weight 58.513 kg 58.513 kg Intake: IV 1000 / 1000 NS Inj 1,000 ML @ 100 mls/hr IV 1000 / 1000 .CONT .Q10H [facility] Rx#:[id number] Other: Weight On Admission 58.513 kg Narrative: GENERAL: This is a well-nourished, well-developed patient, in no apparent distress. Patient speaks in clear complete sentences. Patient is pleasant. HEENT: Head is atraumatic and normocephalic. Neck is supple without lymphadenopathy and trachea is midline. No JVD or carotid bruits. CARDIOVASCULAR: Regular rate and rhythm without murmurs, gallops, or rubs. RESPIRATORY: Clear to auscultation. Breath sounds equal bilaterally. No wheezes , rales, or rhonchi. Chest wall is nontender. No use of accessory muscles. GASTROINTESTINAL: Abdomen is nontender, nondistended. Abdomen soft. No obvious pulsatile mass or bruit. No CVA tenderness. Strong femoral pulses bilaterally. Normal bowel sounds in all quadrants. MUSCULOSKELETAL: Patient is moving upper and lower extremities freely. No calf tenderness or edema, no Homans sign. Strong pulses in upper and lower extremities. NEUROLOGICAL: Patient is alert and oriented. Cranial nerves 2-12 are grossly intact. No focal deficits and speech is clear. SKIN: No rash and turgor is normal. Results 03/14/18 15:37 03/14/18 15:37 Cardiac Enzymes 03/14/18 03/14/18 03/14/18 Range/Units 15:37 15:37 20:20 Troponin I Less than 0.02 L Less than 0.02 L (0.02-0.05) ng/mL B-Natriuretic Peptide 67 (0-100) pg/mL 03/15/18 Range/Units 02:20 Troponin I Less than 0.02 L (0.02-0.05) ng/mL B-Natriuretic Peptide (0-100) pg/mL Coagulation 03/14/18 03/14/18 Range/Units 15:37 15:37 PT 10.7 (9.8-11.6) sec APTT 23.0 L (24.3-30.1) sec B-Natriuretic Peptide 67 (0-100) pg/mL CBC 03/14/18 Range/Units 15:37 WBC 4.3 (4.0-11.0) th/mm3 RBC 3.48 L (4.00-5.30) mil/mm3 Hgb 11.0 L (11.6-15.3) gm/dL Hct 32.6 L (35.0-46.0) % Plt Count 192 (150-450) th/mm3 Neut # (Auto) 2.2 (1.8-7.7) th/mm3 Lymph # (Auto) 1.6 (1.0-4.8) th/mm3 [place] # (Auto) 0.3 (0.0-0.9) th/mm3 Eos # (Auto) 0.1 (0.0-0.4) th/mm3 Baso # (Auto) 0.0 (0.0-0.2) th/mm3 Comprehensive Metabolic Panel 03/14/18 Range/Units 15:37 Sodium 143 (136-145) meq/L Potassium 3.7 (3.5-5.1) meq/L Chloride 104 (98-107) meq/L Carbon Dioxide 29.1 (21.0-32.0) meq/L BUN 9 (7-18) mg/dL Creatinine 0.61 (0.50-1.00) mg/dL Calcium 8.5 (8.5-10.1) mg/dL Intake and Output 03/14/18 03/15/18 03/15/18 22:59 06:59 14:59 Intake Total 1000 / 1000 Balance 1000 / 1000 Intake: IV 1000 / 1000 NS Inj 1,000 ML @ 100 mls/hr IV 1000 / 1000 .CONT .Q10H [facility] Rx#:[id number] Other: Weight 58.513 kg Weight On Admission 58.513 kg EKG interpretations - EKG EKG shows: bradycardia (EKGs in sinus bradycardia without significant ST segment depressions or elevations.) Caprini VTE Risk Assessment Caprini VTE Risk Assessment: Moderate/High Risk (score >= 2) Caprini Risk Assessment Model: Point Value = 1 Point Value = 2 Point Value = 3 Point Value = 5 Age 41-60 Minor surgery BMI > 25 kg/m2 Swollen legs Varicose veins or History of unexplained or recurrent spontaneous Oral contraceptives or hormone replacement Sepsis (< 1 month) Serious lung disease, including pneumonia (< 1 month) Abnormal pulmonary function Acute myocardial infarction Congestive heart failure (< 1 month) History of inflammatory bowel disease Medical patient at bed rest Age 61-74 Arthroscopic surgery Major open surgery (> 45 min) Laparoscopic surgery (> 45 min) Malignancy Confined to bed (> 72 hours) Immobilizing plaster cast Central venous access Age >= 75 History of VTE Family history of VTE Factor V Leiden Prothrombin [id number] Lupus anticoagulant Anticardiolipin antibodies Elevated serum homocysteine Heparin-induced thrombocytopenia Other congenital or acquired thrombophilia Stroke (< 1 month) Elective arthroplasty Hip, pelvis, or leg fracture Acute spinal cord injury (< 1 month) Prophylaxis Regimen: Total Risk Factor Score Risk Level Prophylaxis Regimen 0-1 Low Early ambulation 2 Moderate Order ONE of the following: *Sequential Compression Device (SCD) *Heparin 5000 units SQ BID 3-4 Higher Order ONE of the following medications: *Heparin 5000 units SQ TID *Enoxaparin/Lovenox 40 mg SQ daily (WT < 150 kg, CrCl > 30 mL/min) *Enoxaparin/Lovenox 30 mg SQ daily (WT < 150 kg, CrCl > 10-29 mL/min) *Enoxaparin/Lovenox 30 mg SQ BID (WT < 150 kg, CrCl > 30 mL/min) AND/OR *Sequential Compression Device (SCD) 5 or more Highest Order ONE of the following medications: *Heparin 5000 units SQ TID (Preferred with Epidurals) *Enoxaparin/Lovenox 40 mg SQ daily (WT < 150 kg, CrCl > 30 mL/min) *Enoxaparin/Lovenox 30 mg SQ daily (WT < 150 kg, CrCl > 10-29 mL/min) *Enoxaparin/Lovenox 30 mg SQ BID (WT < 150 kg, CrCl > 30 mL/min) AND *Sequential Compression Device (SCD) Assessment and Plan - Assessment (1) Atypical chest pain Code(s): R07.89 - Other chest pain Status: Acute - Plan * Atypical chest pain: Patient has had serial cardiac enzymes and EKGs for ruling out purposes. She was seen by Dr. Ty Butler of cardiology in the chest pain center. He also reviewed her records including an essentially normal heart catheterization about 7 months ago revealing proximal 10% mid segment disease of LAD. Symptoms are atypical. Patient will be discharged home at this time with instructions to follow-up with her PCP. Return to ED for interval issues. Patient is stable at this time. She is agreeable to this plan. H&P: Quality - VTE Deep Vein Thrombosis/Pulmonary Embolism Present on Admission: No
--- NOTE | 2018-03-15 14:26 | ECG ---
Date Performed: 03/14/2018 Time Performed: 22:52:21 PTAGE: 67 years EKG: SINUS BRADYCARDIA LOW QRS VOLTAGE IN PRECORDIAL LEADS BORDERLINE ECG PREVIOUS TRACING : 03/14/2018 15.16 Since previous tracing, no significant change noted DOCTOR: Ty Butler Interpretating Date/Time 03/15/2018 14:25:36
--- NOTE | 2018-03-15 14:26 | ECG ---
Date Performed: 03/15/2018 Time Performed: 03:38:48 PTAGE: 67 years EKG: SINUS BRADYCARDIA LOW QRS VOLTAGE IN PRECORDIAL LEADS BORDERLINE ECG PREVIOUS TRACING : 03/14/2018 22.52 Since previous tracing, no significant change noted DOCTOR: Ty Butler Interpretating Date/Time 03/15/2018 14:25:13
--- NOTE | 2018-03-15 14:27 | ECG ---
Date Performed: 03/14/2018 Time Performed: 15:16:11 PTAGE: 67 years EKG: SINUS BRADYCARDIA BORDERLINE ECG PREVIOUS TRACING : 08/15/2017 12.56 Since previous tracing, no significant change noted DOCTOR: Ty Butler Interpretating Date/Time 03/15/2018 14:26:46
== END 2018-03-15 10:06 | disposition home or self-care (01) ==
LOC: NEPC 14:59 → NEPFCDU 14:59 → NEDA 14:59 → NEPFCDU 19:50
PROVIDERS: ADMIT Internal Medicine Interventional Cardiology; ATTEND Internal Medicine Interventional Cardiology